=== PATIENT | female | born 1945 | race Caucasian/White ===

== ENCOUNTER 2019-06-22 10:33 | Outpatient (CLI) | payer MEDICARE, SELFPAY ==
[2019-06-22 10:48] LABS: Basophils Percent Auto 0.6 % (0.2-1.2); Eosinophils Absolute Auto 0.1 K/mm3 (0-0.3); Eosinophils Percent Auto 1.9 % (0-4.4); Hemoglobin 14.7 g/dL (12.0-15.0); Immature Granulocyte Absolute 0.01 K/mm3 (0.00-0.031); Immature Granulocyte Percent A 0.2 % (0-0.5); Lymphocytes Absolute Auto 1.37 K/mm3 (0.9-3.2); Mean Corpuscular HGB Conc 32.7 g/dl (32-36); Mean Corpuscular Volume 97.8 fl (80-100); Mean Platelet Volume 9.6 fl (7.4-10.4); Monocytes Absolute Auto 0.4 K/mm3 (0.1-0.6); Monocytes Percent Auto 7.1 % (2.6-8.5); Neutrophils Absolute Auto 4.2 K/mm3 (1.3-6.7); Neutrophils Percent Auto 68.2 % (45.5-73.1); Platelet Count Result 233 k/mm3 (150-375); Red Cell Distribution Width 12.8 % (11.5-14.5); White Blood Count 6.2 K/mm3 (4.5-10.0)
[2019-06-22 12:32] LABS: Alanine Aminotransferase 25 U/L (4-35); Albumin Level 3.8 g/dL (3.5-5.1); Alkaline Phosphatase 68 U/L (38-126); Aspartate Amino Transferase 26 U/L (14-36); Bilirubin,Total 0.4 mg/dL (0.2-1.3); Blood Urea Nitrogen 12 mg/dL (7-17); Calcium 8.8 mg/dL (8.4-10.2); Carbon Dioxide 23 mmol/L (22-30); Chloride 104 mmol/L (98-107); Estimated Glomerular Filt Rate > 60; Glucose 102 mg/dL (65-105); Potassium 4.5 mmol/L (3.4-5.0); Sodium 140 mmol/L (137-145)
[2019-06-25 06:44] LABS: CA 27.29 23 U/mL (<38)
== END 2019-06-22 10:34 | disposition home or self-care (01) ==
LOC: ANHLAB 10:35
PROVIDERS: PCP Internal Medicine; Visit Provider Internal Medicine Hematology & Oncology
DX: C50.212 Malignant neoplasm of upper-inner quadrant of left female breast (principal); Z17.0 Estrogen receptor positive status [ER+]
CPT/HCPCS: 36415; 80053; 85025; 86300

== ENCOUNTER 2019-10-14 10:54 | Outpatient (CLI) | payer MEDICARE, SELFPAY ==
[2019-10-14 11:13] LABS: Basophils Percent Auto 0.6 % (0.2-1.2); Eosinophils Absolute Auto 0.2 K/mm3 (0-0.3); Eosinophils Percent Auto 2.7 % (0-4.4); Hematocrit 44.1 % (37.0-47.0); Hemoglobin 14.4 g/dL (12.0-15.0); Immature Granulocyte Absolute 0.02 K/mm3 (0.00-0.031); Immature Granulocyte Percent A 0.3 % (0-0.5); Lymphocytes Absolute Auto 1.69 K/mm3 (0.9-3.2); Lymphocytes Percent Auto 25.3 % (18.3-44.2); Mean Corpuscular HGB Conc 32.7 g/dl (32-36); Mean Corpuscular Hemoglobin 31.8 pg (26-34); Mean Corpuscular Volume 97.4 fl (80-100); Mean Platelet Volume 9.6 fl (7.4-10.4); Monocytes Absolute Auto 0.6 K/mm3 (0.1-0.6); Monocytes Percent Auto 8.5 % (2.6-8.5); Neutrophils Absolute Auto 4.2 K/mm3 (1.3-6.7); Neutrophils Percent Auto 62.6 % (45.5-73.1); Platelet Count Result 242 k/mm3 (150-375); Red Blood Count 4.53 M/mm3 (4.2-5.4); Red Cell Distribution Width 12.7 % (11.5-14.5); White Blood Count 6.7 K/mm3 (4.5-10.0)
[2019-10-14 12:58] LABS: Alanine Aminotransferase 25 U/L (4-35); Albumin Level 3.9 g/dL (3.5-5.1); Alkaline Phosphatase 65 U/L (38-126); Aspartate Amino Transferase 29 U/L (14-36); Bilirubin,Total 0.3 mg/dL (0.2-1.3); Blood Urea Nitrogen 12 mg/dL (7-17); Calcium 8.9 mg/dL (8.4-10.2); Carbon Dioxide 27 mmol/L (22-30); Chloride 109 mmol/L (98-107); Estimated Glomerular Filt Rate > 60; Glucose 114 mg/dL (65-105); Potassium 4.1 mmol/L (3.4-5.0); Sodium 138 mmol/L (137-145)
[2019-10-17 04:50] LABS: CA 27.29 27 U/mL (<38)
== END 2019-10-14 10:55 | disposition home or self-care (01) ==
PROVIDERS: PCP Internal Medicine; Visit Provider Internal Medicine Hematology & Oncology
DX: C50.212 Malignant neoplasm of upper-inner quadrant of left female breast (principal)
CPT/HCPCS: 36415; 80053; 85025; 86300

== ENCOUNTER 2020-03-07 09:42 | Outpatient (CLI) | payer MEDICARE, SELFPAY ==
--- NOTE | ~2020-03-07 | MM_ITS ---
EXAMINATION: MM screening [facility] BI w marko HISTORY: Screening mammogram TECHNIQUE: Craniocaudal and mediolateral oblique 3-D tomosynthesis images were obtained and synthetic 2-D images were generated. CAD analysis was submitted and interpreted. COMPARISON: 03/03/2019, 08/25/2018, 02/26/2018 BREAST PARENCHYMAL COMPOSITION: The breasts are heterogeneously dense, which may obscure small masses . FINDINGS: Stable lumpectomy changes are present in the left breast. There is no evidence of suspiciou s mass, calcification, or architectural distortion to suggest malignancy in either breast. There has been no suspicious interval change. IMPRESSION: 1. No mammographic evidence of malignancy. 2. Recommend routine screening mammography in one year. BI-RADS Category 2: Benign finding(s). Reviewed, dictated and finalized at location A. T SERVICE HOST
[2020-03-07 09:59] LABS: Basophils Percent Auto 0.6 % (0.2-1.2); Eosinophils Absolute Auto 0.2 K/mm3 (0-0.3); Eosinophils Percent Auto 2.3 % (0-4.4); Hematocrit 44.3 % (37.0-47.0); Hemoglobin 14.5 g/dL (12.0-15.0); Immature Granulocyte Absolute 0.02 K/mm3 (0.00-0.031); Immature Granulocyte Percent A 0.3 % (0-0.5); Lymphocytes Absolute Auto 1.66 K/mm3 (0.9-3.2); Mean Corpuscular HGB Conc 32.7 g/dl (32-36); Mean Corpuscular Hemoglobin 31.7 pg (26-34); Mean Corpuscular Volume 96.7 fl (80-100); Mean Platelet Volume 9.5 fl (7.4-10.4); Monocytes Absolute Auto 0.5 K/mm3 (0.1-0.6); Monocytes Percent Auto 7.7 % (2.6-8.5); Neutrophils Absolute Auto 4.3 K/mm3 (1.3-6.7); Neutrophils Percent Auto 64.1 % (45.5-73.1); Platelet Count Result 253 k/mm3 (150-375); Red Blood Count 4.58 M/mm3 (4.2-5.4); Red Cell Distribution Width 12.7 % (11.5-14.5); White Blood Count 6.6 K/mm3 (4.5-10.0)
[2020-03-07 12:07] LABS: Alanine Aminotransferase 29 U/L (4-35); Alkaline Phosphatase 68 U/L (38-126); Anion Gap 9 mmol/L (8-16); Aspartate Amino Transferase 32 U/L (14-36); Bilirubin,Total 0.4 mg/dL (0.2-1.3); Blood Urea Nitrogen 13 mg/dL (7-17); Carbon Dioxide 25 mmol/L (22-30); Chloride 107 mmol/L (98-107); Estimated Glomerular Filt Rate > 60; Glucose 113 mg/dL (65-105); Potassium 4.4 mmol/L (3.4-5.0); Sodium 141 mmol/L (137-145)
[2020-03-11 12:06] LABS: CA 27.29 25 U/mL (<38)
== END 2020-03-07 09:43 | disposition home or self-care (01) ==
PROVIDERS: PCP Internal Medicine; Visit Provider Internal Medicine Hematology & Oncology
DX: Z12.31 Encounter for screening mammogram for malignant neoplasm of breast (principal); C50.212 Malignant neoplasm of upper-inner quadrant of left female breast
CPT/HCPCS: 36415; 77063; 77067; 80053; 85025; 86300

== ENCOUNTER 2020-07-21 11:08 | Outpatient (CLI) | payer MEDICARE, SELFPAY ==
[2020-07-21 11:30] LABS: Basophils Percent Auto 0.6 % (0.2-1.2); Eosinophils Absolute Auto 0.3 K/mm3 (0-0.3); Eosinophils Percent Auto 5.2 % (0-4.4); Hematocrit 45.1 % (37.0-47.0); Hemoglobin 14.8 g/dL (12.0-15.0); Immature Granulocyte Absolute 0.01 K/mm3 (0.00-0.031); Immature Granulocyte Percent A 0.2 % (0-0.5); Lymphocytes Absolute Auto 1.25 K/mm3 (0.9-3.2); Lymphocytes Percent Auto 24.9 % (18.3-44.2); Mean Corpuscular HGB Conc 32.8 g/dl (32-36); Mean Corpuscular Hemoglobin 31.2 pg (26-34); Mean Corpuscular Volume 95.1 fl (80-100); Mean Platelet Volume 9.5 fl (7.4-10.4); Monocytes Absolute Auto 0.6 K/mm3 (0.1-0.6); Monocytes Percent Auto 11.3 % (2.6-8.5); Neutrophils Absolute Auto 2.9 K/mm3 (1.3-6.7); Neutrophils Percent Auto 57.8 % (45.5-73.1); Platelet Count Result 234 k/mm3 (150-375); Red Blood Count 4.74 M/mm3 (4.2-5.4); Red Cell Distribution Width 12.6 % (11.5-14.5)
[2020-07-21 17:13] LABS: Alanine Aminotransferase 29 U/L (4-35); Alkaline Phosphatase 66 U/L (38-126); Anion Gap 8 mmol/L (8-16); Aspartate Amino Transferase 35 U/L (14-36); Bilirubin,Total 0.3 mg/dL (0.2-1.3); Blood Urea Nitrogen 12 mg/dL (7-17); Calcium 8.9 mg/dL (8.4-10.2); Carbon Dioxide 27 mmol/L (22-30); Chloride 106 mmol/L (98-107); Estimated Glomerular Filt Rate > 60; Glucose 114 mg/dL (65-105); Potassium 4.1 mmol/L (3.4-5.0); Sodium 141 mmol/L (137-145)
[2020-07-31 09:21] LABS: CA 15-3 17 U/mL (<32)
== END 2020-07-21 11:09 | disposition home or self-care (01) ==
LOC: ANHLAB 11:11
PROVIDERS: PCP Internal Medicine; Visit Provider Internal Medicine Hematology & Oncology
DX: C50.212 Malignant neoplasm of upper-inner quadrant of left female breast (principal)
CPT/HCPCS: 36415; 80053; 85025; 86300

== ENCOUNTER 2020-11-21 10:41 | Outpatient (CLI) | payer MEDICARE, SELFPAY ==
[2020-11-21 11:03] LABS: Basophils Percent Auto 0.7 % (0.2-1.2); Eosinophils Absolute Auto 0.2 K/mm3 (0-0.3); Eosinophils Percent Auto 2.4 % (0-4.4); Hematocrit 44.8 % (37.0-47.0); Hemoglobin 14.6 g/dL (12.0-15.0); Immature Granulocyte Absolute 0.01 K/mm3 (0.00-0.031); Immature Granulocyte Percent A 0.2 % (0-0.5); Lymphocytes Absolute Auto 1.62 K/mm3 (0.9-3.2); Lymphocytes Percent Auto 26.4 % (18.3-44.2); Mean Corpuscular HGB Conc 32.6 g/dl (32-36); Mean Corpuscular Hemoglobin 31.4 pg (26-34); Mean Corpuscular Volume 96.3 fl (80-100); Mean Platelet Volume 9.4 fl (7.4-10.4); Monocytes Absolute Auto 0.5 K/mm3 (0.1-0.6); Neutrophils Absolute Auto 3.8 K/mm3 (1.3-6.7); Neutrophils Percent Auto 62.3 % (45.5-73.1); Platelet Count Result 261 k/mm3 (150-375); Red Blood Count 4.65 M/mm3 (4.2-5.4); Red Cell Distribution Width 12.9 % (11.5-14.5); White Blood Count 6.1 K/mm3 (4.5-10.0)
[2020-11-21 22:02] LABS: Alanine Aminotransferase 32 U/L (4-35); Albumin Level 3.9 g/dL (3.5-5.1); Alkaline Phosphatase 60 U/L (38-126); Anion Gap 10 mmol/L (8-16); Aspartate Amino Transferase 34 U/L (14-36); Bilirubin,Total 0.5 mg/dL (0.2-1.3); Blood Urea Nitrogen 14 mg/dL (7-17); Calcium 9.6 mg/dL (8.4-10.2); Carbon Dioxide 25 mmol/L (22-30); Chloride 102 mmol/L (98-107); Estimated Glomerular Filt Rate > 60; Glucose 133 mg/dL (65-110); Potassium 4.2 mmol/L (3.4-5.0); Sodium 137 mmol/L (137-145)
[2020-11-24 06:59] LABS: CA 15-3 18 U/mL (<32)
== END 2020-11-21 10:42 | disposition home or self-care (01) ==
PROVIDERS: PCP Internal Medicine; Visit Provider Internal Medicine Hematology & Oncology
DX: C50.212 Malignant neoplasm of upper-inner quadrant of left female breast (principal)
CPT/HCPCS: 36415; 80053; 85025; 86300

== ENCOUNTER 2021-04-17 14:56 | Outpatient (CLI) | payer MEDICARE, SELFPAY ==
--- NOTE | ~2021-04-17 | MM_ITS ---
EXAMINATION: MM screening [facility] BI w marko HISTORY: Screening TECHNIQUE: Craniocaudal and mediolateral oblique 3-D tomosynthesis images were obtained and synthetic 2-D images were generated. CAD analysis was submitted and interpreted. COMPARISON: Comparison to multiple prior studies sequentially, with oldest reviewed study dated 10/2017. BREAST PARENCHYMAL COMPOSITION: The breasts are heterogenously dense, which may obscure small masses. FINDINGS: There is no evidence of suspicious mass, calcification, or architectural distortion to sugg est malignancy in either breast. There has been no suspicious interval change. IMPRESSION: 1. No mammographic evidence of malignancy. 2. Recommend routine screening mammography in one year. BI-RADS Category 1: Negative Reviewed, dictated and finalized at location A. WIRE ALINER
== END 2021-04-17 14:57 | disposition home or self-care (01) ==
LOC: ANHIMG 14:57
PROVIDERS: PCP Internal Medicine; Visit Provider Internal Medicine Hematology & Oncology
DX: Z12.31 Encounter for screening mammogram for malignant neoplasm of breast (principal)
CPT/HCPCS: 77063; 77067

== ENCOUNTER 2021-05-22 12:57 | Outpatient (CLI) | payer MEDICARE, SELFPAY ==
[2021-05-22 13:16] LABS: Basophils Absolute Auto 0.1 K/mm3 (0.0-0.1); Basophils Percent Auto 0.9 % (0.2-1.2); Eosinophils Absolute Auto 0.2 K/mm3 (0-0.3); Eosinophils Percent Auto 2.3 % (0-4.4); Hematocrit 44.9 % (37.0-47.0); Hemoglobin 14.4 g/dL (12.0-15.0); Immature Granulocyte Absolute 0.01 K/mm3 (0.00-0.031); Immature Granulocyte Percent A 0.1 % (0-0.5); Lymphocytes Absolute Auto 1.93 K/mm3 (0.9-3.2); Lymphocytes Percent Auto 27.8 % (18.3-44.2); Mean Corpuscular HGB Conc 32.1 g/dl (32-36); Mean Corpuscular Hemoglobin 31.8 pg (26-34); Mean Corpuscular Volume 99.1 fl (80-100); Mean Platelet Volume 9.7 fl (7.4-10.4); Monocytes Absolute Auto 0.5 K/mm3 (0.1-0.6); Monocytes Percent Auto 7.3 % (2.6-8.5); Neutrophils Absolute Auto 4.3 K/mm3 (1.3-6.7); Neutrophils Percent Auto 61.6 % (45.5-73.1); Platelet Count Result 258 k/mm3 (150-375); Red Blood Count 4.53 M/mm3 (4.2-5.4); Red Cell Distribution Width 12.7 % (11.5-14.5); White Blood Count 6.9 K/mm3 (4.5-10.0)
[2021-05-22 16:00] LABS: Alanine Aminotransferase 35 U/L (4-35); Albumin Level 3.8 g/dL (3.5-5.1); Alkaline Phosphatase 63 U/L (38-126); Anion Gap 3 mmol/L (8-16); Aspartate Amino Transferase 44 U/L (14-36); Bilirubin,Total 0.2 mg/dL (0.2-1.3); Blood Urea Nitrogen 11 mg/dL (7-17); Calcium 8.7 mg/dL (8.4-10.2); Carbon Dioxide 26 mmol/L (22-30); Chloride 108 mmol/L (98-107); Estimated Glomerular Filt Rate > 60; Glucose 123 mg/dL (65-110); Potassium 4.3 mmol/L (3.4-5.0); Sodium 137 mmol/L (137-145)
[2021-05-25 06:43] LABS: CA 15-3 16 U/mL (<32)
== END 2021-05-22 12:58 | disposition home or self-care (01) ==
LOC: ANHLAB 12:59
PROVIDERS: PCP Internal Medicine; Visit Provider Internal Medicine Hematology & Oncology
DX: C50.212 Malignant neoplasm of upper-inner quadrant of left female breast (principal)
CPT/HCPCS: 36415; 80053; 85025; 86300

== ENCOUNTER 2021-11-20 10:13 | Outpatient (CLI) | payer MEDICARE, SELFPAY ==
[2021-11-20 10:36] LABS: Basophils Absolute Auto 0.1 K/mm3 (0.0-0.1); Basophils Percent Auto 0.8 % (0.2-1.2); Eosinophils Absolute Auto 0.2 K/mm3 (0-0.3); Eosinophils Percent Auto 3.7 % (0-4.4); Hematocrit 44.6 % (37.0-47.0); Hemoglobin 14.8 g/dL (12.0-15.0); Immature Granulocyte Absolute 0.01 K/mm3 (0.00-0.031); Immature Granulocyte Percent A 0.2 % (0-0.5); Lymphocytes Absolute Auto 1.74 K/mm3 (0.9-3.2); Mean Corpuscular HGB Conc 33.2 g/dl (32-36); Mean Corpuscular Hemoglobin 32.1 pg (26-34); Mean Corpuscular Volume 96.7 fl (80-100); Mean Platelet Volume 9.6 fl (7.4-10.4); Monocytes Absolute Auto 0.4 K/mm3 (0.1-0.6); Monocytes Percent Auto 7.2 % (2.6-8.5); Neutrophils Absolute Auto 3.6 K/mm3 (1.3-6.7); Neutrophils Percent Auto 59.1 % (45.5-73.1); Platelet Count Result 252 k/mm3 (150-375); Red Blood Count 4.61 M/mm3 (4.2-5.4); Red Cell Distribution Width 12.8 % (11.5-14.5)
[2021-11-20 17:37] LABS: Alanine Aminotransferase 53 U/L (6-35); Albumin Level 4.2 g/dL (3.5-5.1); Alkaline Phosphatase 63 U/L (38-126); Anion Gap 13 mmol/L (8-16); Aspartate Amino Transferase 53 U/L (14-36); Bilirubin,Total 0.5 mg/dL (0.2-1.3); Blood Urea Nitrogen 13 mg/dL (7-17); Carbon Dioxide 22 mmol/L (22-30); Chloride 106 mmol/L (98-107); Estimated Glomerular Filt Rate > 60; Glucose 140 mg/dL (65-110); Potassium 4.4 mmol/L (3.4-5.0); Sodium 141 mmol/L (137-145)
[2021-11-23 06:22] LABS: CA 15-3 17 U/mL (<32)
== END 2021-11-20 10:14 | disposition home or self-care (01) ==
LOC: ANHLAB 10:15
PROVIDERS: PCP Internal Medicine; Visit Provider Internal Medicine Hematology & Oncology
DX: C50.212 Malignant neoplasm of upper-inner quadrant of left female breast (principal)
CPT/HCPCS: 36415; 80053; 85025; 86300

== ENCOUNTER 2022-04-19 10:24 | Outpatient (CLI) | payer MEDICARE, SELFPAY ==
--- NOTE | ~2022-04-19 | MM_ITS ---
EXAMINATION: MM screening [facility] BI w marko HISTORY: Screening mammogram TECHNIQUE: Craniocaudal and mediolateral oblique 3-D tomosynthesis images were obtained and synthetic 2-D images were generated. CAD analysis was submitted and interpreted. COMPARISON: 04/17/2021, 03/07/2020, 03/03/2019 bilateral screening mammogram examinations BREAST PARENCHYMAL COMPOSITION: The breasts are heterogeneously dense, which may obscure small masses . FINDINGS: Stable postoperative surgical change of the left breast is again noted. History of bilatera l partial mastectomy for bilateral breast cancer. There is no evidence of suspicious mass, calcificat ion, or new architectural distortion to suggest malignancy in either breast. There has been no suspic ious interval change. IMPRESSION: 1. Status post bilateral partial mastectomy for bilateral breast cancer. No mammographic evidence of malignancy. 2. Recommend routine screening mammography in one year. BI-RADS Category 2: Benign finding(s). Reviewed, dictated and finalized at location A. RETE MIXER OPERATOR IMPRESSION: 1. Status post bilateral partial mastectomy for bilateral breast cancer. No [facility] mographic evidence of malignancy. 2. Recommend routine screening mammography in one year. BI-RADS Category 2: Benign finding(s).
== END 2022-04-19 10:25 | disposition home or self-care (01) ==
PROVIDERS: PCP Internal Medicine; Visit Provider Internal Medicine Hematology & Oncology
DX: Z12.31 Encounter for screening mammogram for malignant neoplasm of breast (principal)
CPT/HCPCS: 77063; 77067

== ENCOUNTER 2022-05-24 11:37 | Outpatient (CLI) | payer MEDICARE, SELFPAY ==
[2022-05-24 11:54] LABS: Basophils Absolute Auto 0.1 K/mm3 (0.0-0.1); Basophils Percent Auto 0.7 % (0.2-1.2); Eosinophils Absolute Auto 0.1 K/mm3 (0-0.3); Eosinophils Percent Auto 1.9 % (0-4.4); Hemoglobin 14.5 g/dL (12.0-15.0); Immature Granulocyte Absolute 0.02 K/mm3 (0.00-0.031); Immature Granulocyte Percent A 0.3 % (0-0.5); Lymphocytes Absolute Auto 1.74 K/mm3 (0.9-3.2); Lymphocytes Percent Auto 23.5 % (18.3-44.2); Mean Corpuscular Hemoglobin 32.1 pg (26-34); Mean Corpuscular Volume 97.3 fl (80-100); Mean Platelet Volume 9.7 fl (7.4-10.4); Monocytes Absolute Auto 0.6 K/mm3 (0.1-0.6); Neutrophils Absolute Auto 4.9 K/mm3 (1.3-6.7); Neutrophils Percent Auto 65.6 % (45.5-73.1); Platelet Count Result 258 k/mm3 (150-375); Red Blood Count 4.52 M/mm3 (4.2-5.4); Red Cell Distribution Width 12.6 % (11.5-14.5); White Blood Count 7.4 K/mm3 (4.5-10.0)
[2022-05-24 15:08] LABS: Alanine Aminotransferase 47 U/L (6-35); Albumin Level 3.9 g/dL (3.5-5.1); Alkaline Phosphatase 59 U/L (38-126); Anion Gap 5 mmol/L (8-16); Aspartate Amino Transferase 51 U/L (14-36); Bilirubin,Total 0.5 mg/dL (0.2-1.3); Blood Urea Nitrogen 11 mg/dL (7-17); Calcium 8.7 mg/dL (8.4-10.2); Carbon Dioxide 27 mmol/L (22-30); Chloride 105 mmol/L (98-107); Estimated Glomerular Filt Rate > 60; Glucose 110 mg/dL (65-110); Potassium 4.2 mmol/L (3.4-5.0); Sodium 137 mmol/L (137-145)
[2022-05-29 14:20] LABS: CA 15-3 19 U/mL (<32)
== END 2022-05-24 11:38 | disposition home or self-care (01) ==
LOC: ANHLAB 11:38
PROVIDERS: PCP Internal Medicine; Visit Provider Internal Medicine Hematology & Oncology
DX: C50.212 Malignant neoplasm of upper-inner quadrant of left female breast (principal)
CPT/HCPCS: 36415; 80053; 85025; 86300

== ENCOUNTER 2022-06-18 07:00 | Outpatient (NON) | payer MEDICARE, SELFPAY | END 2022-06-18 07:01 | disposition home or self-care (01) | LOC: ANHLAB 06-20 11:10 | PROVIDERS: PCP Internal Medicine; Visit Provider Nurse Practitioner | DX: C44.311 Basal cell carcinoma of skin of nose (principal) | CPT/HCPCS: 88305 ==

== ENCOUNTER 2022-07-02 14:41 | Outpatient (NON) | payer MEDICARE, SELFPAY | END 2022-07-02 14:42 | disposition home or self-care (01) | LOC: ANHLAB 14:41 | PROVIDERS: PCP Internal Medicine; Visit Provider Nurse Practitioner | DX: C44.311 Basal cell carcinoma of skin of nose (principal) | CPT/HCPCS: 88305; 88331 ==

== ENCOUNTER 2022-11-21 10:15 | Outpatient (CLI) | payer MEDICARE, SELFPAY ==
[2022-11-21 10:37] LABS: Basophils Absolute Auto 0.1 K/mm3 (0.0-0.1); Eosinophils Absolute Auto 0.2 K/mm3 (0-0.3); Eosinophils Percent Auto 2.6 % (0-4.4); Hematocrit 43.6 % (37.0-47.0); Hemoglobin 14.4 g/dL (12.0-15.0); Immature Granulocyte Absolute 0.02 K/mm3 (0.00-0.031); Immature Granulocyte Percent A 0.3 % (0-0.5); Lymphocytes Absolute Auto 1.54 K/mm3 (0.9-3.2); Lymphocytes Percent Auto 24.7 % (18.3-44.2); Mean Corpuscular Hemoglobin 31.7 pg (26-34); Mean Platelet Volume 9.5 fl (7.4-10.4); Monocytes Absolute Auto 0.5 K/mm3 (0.1-0.6); Monocytes Percent Auto 7.4 % (2.6-8.5); Platelet Count Result 256 k/mm3 (150-375); Red Blood Count 4.54 M/mm3 (4.2-5.4); Red Cell Distribution Width 12.6 % (11.5-14.5); White Blood Count 6.2 K/mm3 (4.5-10.0)
[2022-11-21 15:41] LABS: Alanine Aminotransferase 48 U/L (6-35); Albumin Level 3.8 g/dL (3.5-5.1); Alkaline Phosphatase 50 U/L (38-126); Anion Gap 7 mmol/L (8-16); Aspartate Amino Transferase 63 U/L (14-36); Bilirubin,Total 0.5 mg/dL (0.2-1.3); Blood Urea Nitrogen 12 mg/dL (7-17); Carbon Dioxide 23 mmol/L (22-30); Chloride 106 mmol/L (98-107); Estimated Glomerular Filt Rate > 60; Glucose 113 mg/dL (65-110); Potassium 4.1 mmol/L (3.4-5.0); Sodium 136 mmol/L (137-145)
[2022-11-26 15:17] LABS: CA 15-3 17 U/mL (<32)
== END 2022-11-21 10:16 | disposition home or self-care (01) ==
LOC: ANHLAB 10:18
PROVIDERS: PCP Internal Medicine; Visit Provider Internal Medicine Hematology & Oncology
DX: C50.212 Malignant neoplasm of upper-inner quadrant of left female breast (principal)
CPT/HCPCS: 36415; 80053; 85025; 86300

== ENCOUNTER 2023-04-27 10:49 | Outpatient (CLI) | payer MEDICARE, SELFPAY ==
--- NOTE | ~2023-04-27 | MM_ITS ---
EXAMINATION: MM screening [facility] BI w marko HISTORY: Screening mammogram, history of bilateral breast cancer TECHNIQUE: Craniocaudal and mediolateral oblique 3-D tomosynthesis images were obtained and synthetic 2-D images were generated. CAD analysis was submitted and interpreted. COMPARISON: 04/19/2022, 04/17/2021, 03/07/2020 BREAST PARENCHYMAL COMPOSITION: The breasts are heterogeneously dense, which may obscure small masses . FINDINGS: There are stable lumpectomy changes in the breasts. No suspicious mass, calcification, or a rchitectural distortion are identified in either breast to suggest malignancy. There has been no susp icious interval change. IMPRESSION: 1. No mammographic evidence of malignancy. 2. Recommend routine screening mammography in one year. BI-RADS Category 2: Benign finding(s). Reviewed, dictated and finalized at location A. RWEAR WELTER
--- NOTE | ~2023-04-27 | DEXA_ITS ---
Bone Density Report Name: MARIO MOYA Age: 78 Sex: Female Ethnicity: White Date of : 1945 Indication: postmenopausal; screening for osteoporosis; inflammatory bowel disease; cancer; Referring Provider: KIANNA QUINTERO Study: Bone densitometry was performed. Exam Date: April 27, 2023 Accession number: [id number] Bone Density: Region BMD T-score Z-score Classification AP Spine(L1-L4) 1.101 0.5 2.9 Normal Femoral Neck (Left) 0.828 -0.2 1.9 Normal Total Hip (Left) 1.005 0.5 2.3 Normal Femoral Neck (Right) 0.906 0.5 2.6 Normal Total Hip (Right) 1.061 1.0 2.8 Normal Total Hip Mean 1.033 0.8 2.6 Normal World Health Organization criteria for BMD impression classify patients as: Normal (T-score at or above -1.0), Osteopenia (T-score between -1.0 and -2.5), or Osteoporosis (T-score at or below -2.5). 10-year Fracture Risk: FRAX not reported because: All T-scores for Spine Total, Hip Total, Femoral Neck at or above -1.0 Treated for osteoporosis Clinical Information Provided by Patient: Is being treated for osteoporosis Has used the following medications: Vitamin D Has the following medical conditions: Cancer, Inflammatory bowel diseases Patient maximum height was 61.75 Menopause Age: 55 No regular weight bearing exercise Does not regularly consume dairy products Drinks caffeinated beverages Onset of menses at age 13 Number of children 2 Impression: The patient has normal bone mass. Discussion: It is important to ask patients whether they are taking their medications and to encourage continued and appropriate compliance with their osteoporosis therapies to reduce fracture risk. It is also important to review their risk factors and encourage appropriate calcium and vitamin D intakes, exercise, fall prevention and other lifestyle measures. Follow-Up: Consider a repeat BMD and Vertebral Fracture Assessment (VFA) exam in 2 years or sooner if medically necessary, to reassess this patient's status. Reported by: [facility] on 04/27/2023 11:21:00 AM. Reviewed, dictated and finalized at location ALuis Alberto ZAYAS
== END 2023-04-27 10:50 | disposition home or self-care (01) ==
PROVIDERS: PCP Internal Medicine; Visit Provider Internal Medicine Hematology & Oncology
DX: Z12.31 Encounter for screening mammogram for malignant neoplasm of breast (principal); M85.89 Other specified disorders of bone density and structure, multiple sites
CPT/HCPCS: 77063; 77067; 77080

== ENCOUNTER 2023-05-27 10:30 | Outpatient (CLI) | payer MEDICARE, SELFPAY ==
[2023-05-27 10:49] LABS: Basophils Percent Auto 0.6 % (0.2-1.2); Eosinophils Absolute Auto 0.2 K/mm3 (0-0.3); Eosinophils Percent Auto 2.5 % (0-4.4); Hematocrit 45.1 % (37.0-47.0); Hemoglobin 15.1 g/dL (12.0-15.0); Immature Granulocyte Absolute 0.01 K/mm3 (0.00-0.031); Immature Granulocyte Percent A 0.1 % (0-0.5); Lymphocytes Absolute Auto 2.06 K/mm3 (0.9-3.2); Lymphocytes Percent Auto 29.2 % (18.3-44.2); Mean Corpuscular HGB Conc 33.5 g/dl (32-36); Mean Corpuscular Hemoglobin 32.3 pg (26-34); Mean Corpuscular Volume 96.6 fl (80-100); Mean Platelet Volume 9.4 fl (7.4-10.4); Monocytes Absolute Auto 0.5 K/mm3 (0.1-0.6); Monocytes Percent Auto 6.4 % (2.6-8.5); Neutrophils Absolute Auto 4.3 K/mm3 (1.3-6.7); Neutrophils Percent Auto 61.2 % (45.5-73.1); Platelet Count Result 262 k/mm3 (150-375); Red Blood Count 4.67 M/mm3 (4.2-5.4); Red Cell Distribution Width 12.5 % (11.5-14.5); White Blood Count 7.1 K/mm3 (4.5-10.0)
[2023-05-27 16:36] LABS: Alanine Aminotransferase 47 U/L (6-35); Alkaline Phosphatase 63 U/L (38-126); Anion Gap 7 mmol/L (8-16); Aspartate Amino Transferase 45 U/L (14-36); Bilirubin,Total 0.6 mg/dL (0.2-1.3); Blood Urea Nitrogen 14 mg/dL (7-17); Calcium 9.3 mg/dL (8.4-10.2); Carbon Dioxide 29 mmol/L (22-30); Chloride 103 mmol/L (98-107); Estimated Glomerular Filt Rate > 60; Glucose 153 mg/dL (65-110); Potassium 4.2 mmol/L (3.4-5.0); Sodium 139 mmol/L (137-145)
[2023-05-30 06:32] LABS: CA 15-3 20 U/mL (<32)
== END 2023-05-27 10:31 | disposition home or self-care (01) ==
PROVIDERS: PCP Internal Medicine; Visit Provider Internal Medicine Hematology & Oncology
DX: C50.212 Malignant neoplasm of upper-inner quadrant of left female breast (principal)
CPT/HCPCS: 36415; 80053; 85025; 86300

== ENCOUNTER 2023-11-27 11:14 | Outpatient (CLI) | payer MEDICARE, SELFPAY ==
[2023-11-27 11:34] LABS: Basophils Absolute Auto 0.1 K/mm3 (0.0-0.1); Basophils Percent Auto 0.7 % (0.2-1.2); Eosinophils Absolute Auto 0.2 K/mm3 (0-0.3); Hematocrit 45.5 % (37.0-47.0); Hemoglobin 15.4 g/dL (12.0-15.0); Immature Granulocyte Absolute 0.03 K/mm3 (0.00-0.031); Immature Granulocyte Percent A 0.3 % (0-0.5); Lymphocytes Absolute Auto 1.95 K/mm3 (0.9-3.2); Lymphocytes Percent Auto 21.5 % (18.3-44.2); Mean Corpuscular HGB Conc 33.8 g/dl (32-36); Mean Corpuscular Hemoglobin 32.6 pg (26-34); Mean Corpuscular Volume 96.4 fl (80-100); Mean Platelet Volume 9.8 fl (7.4-10.4); Monocytes Absolute Auto 0.5 K/mm3 (0.1-0.6); Monocytes Percent Auto 5.6 % (2.6-8.5); Neutrophils Absolute Auto 6.4 K/mm3 (1.3-6.7); Neutrophils Percent Auto 69.9 % (45.5-73.1); Platelet Count Result 213 k/mm3 (150-375); Red Blood Count 4.72 M/mm3 (4.2-5.4); Red Cell Distribution Width 12.4 % (11.5-14.5); White Blood Count 9.1 K/mm3 (4.5-10.0)
[2023-11-27 12:40] LABS: Alanine Aminotransferase 36 U/L (6-35); Albumin Level 4.4 g/dL (3.5-5.1); Alkaline Phosphatase 61 U/L (38-126); Anion Gap 10 mmol/L (4-12); Aspartate Amino Transferase 34 U/L (14-36); Blood Urea Nitrogen 13 mg/dL (7-17); Calcium 9.3 mg/dL (8.4-10.2); Carbon Dioxide 28 mmol/L (22-30); Chloride 101 mmol/L (98-107); Estimated Glomerular Filt Rate > 60; Glucose 120 mg/dL (65-110); Potassium 4.2 mmol/L (3.4-5.0); Sodium 139 mmol/L (137-145)
[2023-11-28 13:38] LABS: CA 15-3 15 U/mL (<32)
== END 2023-11-27 11:15 | disposition home or self-care (01) ==
LOC: ANHLAB 11:17
PROVIDERS: PCP Internal Medicine; Visit Provider Internal Medicine Hematology & Oncology
DX: C50.212 Malignant neoplasm of upper-inner quadrant of left female breast (principal)
CPT/HCPCS: 36415; 80053; 85025; 86300

== ENCOUNTER 2024-04-29 09:41 | Outpatient (CLI) | payer MEDICARE, SELFPAY ==
--- NOTE | ~2024-04-29 | MM_ITS ---
EXAMINATION: MM screening [facility] BI w marko HISTORY: Screening TECHNIQUE: Craniocaudal and mediolateral oblique 3-D tomosynthesis images were obtained and synthetic 2-D images were generated. CAD analysis was submitted and interpreted. COMPARISON: Comparison to multiple prior studies sequentially, with oldest reviewed study dated 09/2018. BREAST PARENCHYMAL COMPOSITION: There are scattered areas of fibroglandular density. FINDINGS: There is no evidence of suspicious mass, calcification, or architectural distortion to sugg est malignancy in either breast. There has been no suspicious interval change. IMPRESSION: 1. No mammographic evidence of malignancy. 2. Recommend routine screening mammography in one year. BI-RADS Category 1: Negative Reviewed, dictated and finalized at location B. ETING AND OUTREACH COORDINATOR
== END 2024-04-29 09:42 | disposition home or self-care (01) ==
LOC: ANHIMG 09:44
PROVIDERS: PCP Nurse Practitioner Family; Visit Provider Internal Medicine Hematology & Oncology
DX: Z12.31 Encounter for screening mammogram for malignant neoplasm of breast (principal)
CPT/HCPCS: 77063; 77067

== ENCOUNTER 2024-05-18 10:04 | Outpatient (CLI) | payer MEDICARE, SELFPAY ==
[2024-05-18 10:18] LABS: Basophils Percent Auto 0.4 % (0.2-1.2); Eosinophils Absolute Auto 0.2 K/mm3 (0-0.3); Hematocrit 47.8 % (37.0-47.0); Hemoglobin 15.8 g/dL (12.0-15.0); Immature Granulocyte Absolute 0.02 K/mm3 (0.00-0.031); Immature Granulocyte Percent A 0.3 % (0-0.5); Lymphocytes Absolute Auto 1.57 K/mm3 (0.9-3.2); Mean Corpuscular HGB Conc 33.1 g/dl (32-36); Mean Corpuscular Hemoglobin 32.1 pg (26-34); Mean Corpuscular Volume 97.2 fl (80-100); Mean Platelet Volume 9.3 fl (7.4-10.4); Monocytes Absolute Auto 0.6 K/mm3 (0.1-0.6); Monocytes Percent Auto 7.4 % (2.6-8.5); Neutrophils Absolute Auto 5.2 K/mm3 (1.3-6.7); Neutrophils Percent Auto 68.9 % (45.5-73.1); Platelet Count Result 261 k/mm3 (150-375); Red Blood Count 4.92 M/mm3 (4.2-5.4); Red Cell Distribution Width 12.2 % (11.5-14.5); White Blood Count 7.5 K/mm3 (4.5-10.0)
--- OUTSIDE RECORDS SUMMARY | 2024-05-18 10:56 | XMS_ITS | Referral Summary ---
Author Organization [facility] Address [address] [place] [address] Care Team Providers Care Actuarial Trainee Name Role Phone Kenny Fields MD Primary Care Provider [phone] Source Comments [facility],non-owned Affiliates and Associated Physician Practices is amultiple site organization consisting of ambulatory clinics and hospital sitesin [place], [place], [place] and [place]. This disclosure is being madepursuant to the Care Everywhere program and may not contain all information available regarding this patient. Last updated 18.[facility] Allergies Active Allergy Reactions Criticality Noted Date Comments Aspirin Swelling Low 11/29/2016 Social History Tobacco Use Types Packs/Day Years Used Date Smoking Tobacco: Never Assessed Sex and Gender Information Value Date Recorded Sex Assigned at Not on file Gender Identity Not on file Sexual Orientation Not on file Plan of Treatment Not on file Care Teams Actuarial Trainee Relationship Specialty Start Date End Date Kenny Fields MD [address] [place], [place] [id number] PCP - General 07/03/22
--- OUTSIDE RECORDS SUMMARY | 2024-05-18 10:56 | XMS_ITS | Clinical Summary ---
Author Organization [facility] Address [address] [place] [address] Care Team Providers Care Dry Cleaning Attendant Name Role Phone Kenny Fields MD Primary Care Provider [phone] Source Comments [facility],non-owned Affiliates and Associated Physician Practices is amultiple site organization consisting of ambulatory clinics and hospital sitesin [place], [place], [place] and [place]. This disclosure is being madepursuant to the Care Everywhere program and may not contain all information available regarding this patient. Last updated 18.[facility] Allergies Active Allergy Reactions Criticality Noted Date Comments Aspirin Swelling Low 11/29/2016 Social History Tobacco Use Types Packs/Day Years Used Date Smoking Tobacco: Never Assessed Sex and Gender Information Value Date Recorded Sex Assigned at Not on file Gender Identity Not on file Sexual Orientation Not on file Plan of Treatment Health Maintenance Due Date Last Done Comments BONE DENSITY TESTING 1945 MEDICARE AWV ? 12 MONTHS 1945 HEPATITIS C SCREENING 04/19/1965 DTAP/TDAP/TD VACCINES (1 - Tdap) 1966 PNEUMOCOCCAL VACCINE 50+ (1 of 1 - PCV) 1997 ZOSTER VACCINE (1 of 2) 1997 Respiratory Syncytial Virus (RSV) Vaccine Pt: or over 60 yrs (1 - 1-dose 75+ series) 2022 COVID-19 VACCINE ( - 2023-2 5 season) 2023 INFLUENZA VACCINE (#1) 2023 DEPRESSION SCREENING 04/22/2024 HEPATITIS B VACCINE Aged Out No longe r eligible based on patient's age to complete this topic HIB VACCINE Aged Out No longer eligi ble based on patient's age to complete this topic HPV VACCINE Aged Out No longer eligi ble based on patient's age to complete this topic MENINGOCOCCAL (Group B) VACCINE Aged Out No longer eligible based on patient's age to complete this topic MENINGOCOCCAL VACCINE Aged Out No danica giovani eligible based on patient's age to complete this topic Care Teams Dry Cleaning Attendant Relationship Specialty Start Date End Date Kenny Fields MD [facility] [place] [address] PCP - General 07/03/22
--- OUTSIDE RECORDS SUMMARY | 2024-05-18 10:56 | XMS_ITS | Patient Health Summary ---
Author Organization [facility] Address [address] [place] [address] Care Team Providers Care Worm Packer Name Role Phone Kenny Fields MD Primary Care Provider [phone] Note from [facility],non-owned Affiliates and Associated Physician Practices is amultiple site organization consisting of ambulatory clinics and hospital sitesin [place], [place], [place] and [place]. This disclosure is being madepursuant to the Care Everywhere program and may not contain all information available regarding this patient. Last updated 18.[facility] Allergies * Aspirin(Swelling) -Low Criticality Social History Tobacco Use Types Packs/Day Years Used Date Smoking Tobacco: Never Assessed Sex and Gender Information Value Date Recorded Sex Assigned at Not on file Gender Identity Not on file Sexual Orientation Not on file Procedures * PATHOLOGY TISSUE(Performed 11/29/2016) * US BREAST BIOPSY(Performed 11/29/2016) * US BREAST BILATERAL LTD(Performed 11/29/2016) * MAMMO BILAT DIAGNOSTIC(Performed 11/29/2016) * MRI BREAST BILAT WWO CONTRAST(Performed 11/22/2016) * CREATININE BLOOD - POCT (IP) SL(Performed 11/22/2016) Results * PATHOLOGY TISSUE (11/29/2016 1:33 PM CDT) Surgical Pathology Tissue ACCESSION No: [id number] CLINICAL HISTORY: Distortion with questionable IDC. 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 IDC , are multiple fragments of soft, yellow-white fibroadipose tissue, with an aggregate measurement of 2.5 x 1.5 x 0.3 cm. The specimen is filtered and submitted entirely in cassette A1. 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 In addition, there is a ~1.5 mm focus of open tubules and cribriform structures without a desmoplastic reaction, but also without obvious myoepithelium and an infiltrative appearance, highly suspicious for invasive ductal carcinoma. A p63 immunostain was performed in an attempt to further characterize this area, though this focus is not present on the deeper immunostained slides. ??Nevertheless, the findings are worrisome for a low grade invasive carcinoma by H&E examination. Immunostains for ER, KS, and HER-2 were performed though again the focus suspicious for carcinoma is not present. On the portions of ductal carcinoma in situ, ER is positive (3+ intensity, 100% of cells), KS is positive (2+ intensity, 90% of cells), and HER-2/cyrus is not overexpressed (1+ staining, 50% cells). ??A Ki-67 immunostain shows a low proliferative rate (2+ intensity, less than 10% of cells). ??Again, these breast biomarkers are only evaluating ductal carcinoma in situ in this sampling, as the area suspicious for invasion is not present on the deeper immunostained slides. Given the worrisome features by H&E examination, re-excision/lumpectomy is recommended, with biomarkers to be performed on the larger sampling. ??This case has undergone intradepartmental review. The performance characteristics of all immunohistochemical and indirect immunofluorescence stains (if any) cited in this report were determined by the [facility].?? Some of these tests were developed by our own laboratory and have not been cleared or approved by the US Food and Drug Administration.?The FDA does not require this test to go through premarket FDA review.?These tests are used for clinical purposes. They should not be regarded as investigational or for research.?? This laboratory is certified under the Clinical Laboratory Improvement Amendments (CLIA) as qualified to perform high complexity clinical laboratory testing. This case has been personally reviewed and interpreted by the attending (teaching) pathologist. Final Diagnosis performed by Yaritza Solomon MD. Electronically signed 11/30/2016 [facility] Biopsy, Needle (Breast, Left) 11/29/2016 1:33 PM CDT 11/29/2016 2:04 PM CDT Narrative [facility] - 11/30/2016 8:07 PM CDT PROBLEM LIST: The problems are not reviewed yet. Please review them in the Problem List activity and refresh this SmartLink. PRE-OP DIAGNOSIS: ??* No pre-op diagnosis entered * OPERATIVE PROCEDURE / FINDINGS: ??* No procedures listed * POST-OP DIAGNOSIS: * No post-op diagnosis entered * Gabbi Vegas MD LAB - PATHOLOGY/CYTO LOGY ORDERABLES [facility] * US BREAST BIOPSY (11/29/2016 1:32 PM CDT) Anatomical Region Laterality Modality Other Impressions 12/05/2016 12:31 PM CDT IMPRESSION: Ultrasound-guided biopsy of a mass at the ??10 o'clock position, 6 cm from the nipple within the left breast. When the final pathology results are available, an addendum will be issued to this report assessing radiologic/pathologic concordance. This report was electronically signed by GABBI VEGAS M.D. ??on 11/29/2016 2:17 PM . ADDENDUM #1 Pathology is ductal and cribriform structures suspicious for invasive carcinoma. 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 Surgical management is recommended. Dr. Rose notified via email. Note there is a smaller area of architectural distortion in the medial posterior left breast on the CC view (CC 43). ??On MRI, it likely corresponds to a subtle area of architectural distortion in the upper inner left breast, 9 cm posterior to the nipple (series 6, image 85). ??This subtle distortion is 2cm posterior and medial to the index distortion on MRI. ??Excision to include both areas of distortion is recommended. This report was electronically signed by GABBI VEGAS M.D. ??on 12/05/2016 12:31 PM . Narrative 12/05/2016 12:31 PM CDT ORIGINAL REPORT ULTRASOUND-GUIDED CORE NEEDLE BIOPSY LEFT BREAST, DIGITAL DIAGNOSTIC MAMMOGRAM SINGLE VIEW HISTORY: This is a 71 year old woman who is referred for ultrasound-guided biopsy of architectural distortion in the 10:00 left breast, 6 cm from the nipple. COMPARISON: Diagnostic mammography and ultrasound performed earlier today. MRI 11/22/2016. PRE-PROCEDURAL CONSULTATION: Details of the procedure and possible limitations and complications were discussed with the patient. After addressing her questions and concerns, written informed consent was obtained. PROCEDURE: Preprocedure images were reviewed. ??Hospital time out procedure was performed. Informed consent was obtained and documented. The procedure and its risks benefits were discussed with the patient, including, but not limited to, bleeding, infection, allergy, and nondiagnostic specimen. The architectural distortion in the left breast at 10:00, 6 from the nipple, was reidentified. ??The overlying skin was prepped and draped in usual sterile fashion. 2 cc of 1% lidocaine was given for local anesthesia at the skin surface. Using sonographic guidance, 10 cc of 2% lidocaine with epinephrine was given for deeper anesthesia. A 5 mm incision was made in the skin with an 11 blade scalpel and a vacuum assisted biopsy device was inserted. Approximately 6 samples were obtained. ??A tophat clip was then deployed at the biopsy site. ??Firm pressure was held until bleeding stopped. The patient was then transferred to the mammographic suite and a craniocaudal and mediolateral projection of the left breast were obtained. The clip is in an appropriate position. Firm pressure was then held for 10 minutes, and the biopsy site redressed. The patient was discharged from the breast imaging center in stable condition. Blood loss was minimal. The patient tolerated the procedure well with no immediate complications. Post-procedural digital mammographic views of the left breast demonstrate the tophat clip in the upper inner breast, in the area of architectural distortion. Procedure Note Gabbi Vegas MD - 10/12/2019 ORIGINAL REPORT ULTRASOUND-GUIDED CORE NEEDLE BIOPSY LEFT BREAST, DIGITAL DIAGNOSTICMAMMOGRAM SINGLE VIEW HISTORY: This is a 71 year old woman who is referred for ultrasound-guidedbiopsy of architectural distortion in the 10:00 left breast, 6 cm from thenipple. COMPARISON: Diagnostic mammography and ultrasound performed earlier today.MRI 11/22/2016. PRE-PROCEDURAL CONSULTATION: Details of the procedure and possiblelimitations and complications were discussed with the patient. Afteraddressing her questions and concerns, written informed consent wasobtained. PROCEDURE: Preprocedure images were reviewed. Hospital time out procedurewas performed. Informed consent was obtained and documented. The procedureand its risks benefits were discussed with the patient, including, but notlimited to, bleeding, infection, allergy, and nondiagnostic specimen. The architectural distortion in the left breast at 10:00, 6 from thenipple, was reidentified. The overlying skin was prepped and draped inusual sterile fashion. 2 cc of 1% lidocaine was given for local anesthesiaat the skin surface. Using sonographic guidance, 10 cc of 2% lidocaine with epinephrine was given for deeperanesthesia. A 5 mm incision was made in the skin with an 11 blade scalpeland a vacuum assisted biopsy device was inserted. Approximately 6 sampleswere obtained. A tophat clip was then deployed at the biopsy site. Firm pressure was held until bleedingstopped. The patient was then transferred to the mammographic suite and acraniocaudal and mediolateral projection of the left breast were obtained.The clip is in an appropriate position. Firm pressure was then held for 10minutes, and the biopsy site redressed. The patient was discharged from the breast imaging center in stablecondition. Blood loss was minimal. The patient tolerated the procedure well with no immediatecomplications. Post-procedural digital mammographic views of the left breast demonstratethe tophat clip in the upper inner breast, in the area of architecturaldistortion. IMPRESSION IMPRESSION: Ultrasound-guided biopsy of a mass at the 10 o'clock position, 6 cm fromthe nipple within the left breast. When the final pathology results are available, an addendum will be issuedto this report assessing radiologic/pathologic concordance. This report was electronically signed by GABBI VEGAS M.D. on11/29/2016 2:17 PM . ADDENDUM #1 Pathology is ductal and cribriform structures suspicious for invasivecarcinoma. Ductal carcinoma in situ. The results are malignant andconcordant with the imaging assessment. Surgical management isrecommended. Dr. Rose notified via email. Note there is a smaller area of architectural distortion in the medialposterior left breast on the CC view (CC 43). On MRI, it likelycorresponds to a subtle area of architectural distortion in the upperinner left breast, 9 cm posterior to the nipple (series 6, image 85). This subtle distortion is 2cm posterior and medialto the index distortion on MRI. Excision to include both areas ofdistortion is recommended. This report was electronically signed by GABBI VEGAS M.D. on12/05/2016 12:31 PM . Historical Provider MD FERRIS ORDERABLES * US BREAST BILATERAL LTD (11/29/2016 1:31 PM CDT) Anatomical Region Laterality Modality Bilateral Other Impressions 11/29/2016 2:18 PM CDT AND RECOMMENDATION: 1. Mammographic and sonographic architectural distortion in the left breast at 10:00, 6 cm from the nipple is suspicious for malignancy. ??Ultrasound-guided core needle biopsy is recommended and will be performed later today. 2. ??Questioned left nipple retraction. 3. ??The biopsy-proven malignancy in the slightly upper outer posterior right breast corresponds to a 2.4 cm mass with biopsy clip. There is a 1.0 cm mass located 0.8 cm from the index malignancy that is suspicious for a satellite malignancy. ??Excision of this mass at the time of surgery is recommended. The findings and recommendations were discussed with the patient. BI-RADS CODE: BI-RADS Category 4c: Highly suspicious finding - biopsy should be considered. This report was electronically signed by GABBI VEGAS M.D. ??on 11/29/2016 12:55 PM . ADDENDUM #1 The purpose of this addendum is to add information to the left breast mammography section. On mammography, there is architectural distortion in the 10-11 o'clock left breast, 6 cm from the nipple (CC 34, LM 29). ??Three cm posterior and medial to the index architectural distortion, there is a smaller area of architectural distortion on the CC view (CC 43). ??On MRI, it likely corresponds to a subtle area of architectural distortion in the upper inner breast, 9 cm posterior to the nipple (series 6, image 85). ??This subtle distortion is 2cm posterior and medial to the index distortion on MRI. ?? Excision to include both areas of distortion is recommended. This report was electronically signed by GABBI VEGAS M.D. ??on 11/29/2016 2:18 PM . Narrative 11/29/2016 2:18 PM CDT ORIGINAL REPORT BILATERAL DIGITAL DIAGNOSTIC MAMMOGRAM AND LIMITED BILATERAL BREAST ULTRASOUND: TECHNIQUE: Images were performed using 2D full field digital mammography with 3D tomosynthesis images. CAD analysis was performed. CLINICAL HISTORY: 71 year-old who initially was referred to an outside facility for annual mammography as well as evaluation of a palpable right breast mass. The palpable right breast mass was biopsied with pathology of IDC. Bilateral breast MRI was performed to evaluate extent of disease and demonstrated the biopsy-proven malignancy in the right breast, borderline size right axillary lymph nodes, nonmass enhancement/architectural distortion in the left upper inner breast suspicious for malignancy, and a questionably mildly prominent left axillary lymph node. She is referred for further evaluation and possible biopsy. COMPARISON EXAM(S): ??2D and C-view images performed at outside facility on 10/30/2016. Screening mammogram 12/12/2011, 09/20/2010, 02/11/2006. BILATERAL MAMMOGRAPHIC FINDINGS: ??The breast tissue is heterogeneously dense, which could obscure detection of small masses. The biopsy-proven malignancy in the central outer posterior right breast corresponds to a 2.4 x 1.8 cm irregular mass that contains a biopsy clip. Just superior and lateral to the known malignancy, an oval mass measures 0.8 cm. Ultrasound is performed for further evaluation. The visualized right axillary lymph nodes are similar in appearance compared to 12/12/2011. There is architectural distortion in the 10-11 o'clock left breast, 6 cm from the nipple (CC 34, LM 29). Ultrasound is performed for further evaluation. Additionally, the left nipple appears to be retracted, which would represent a change compared to 2011. The visualized left axillary lymph nodes are similar in appearance compared to 12/12/2011 and 09/20/2010. LIMITED BILATERAL BREAST ULTRASOUND FINDINGS: Sonographic evaluation of the area of palpable abnormality in the right breast, both axillae, and the upper inner left breast was performed by the drapery inspector. Ultrasound of the left breast was also performed by the physician. The palpable, biopsy-proven malignancy in the right breast is at 8:00, 7 cm from the nipple. It corresponds to an irregular hypoechoic mass with antiparallel orientation that measures 2.5 x 1.9 x 1.5 cm. The biopsy clip is seen within the mass. In the right breast at 8:30, 7 cm from the nipple, an oval hypoechoic mass measures 1.0 x 0.5 x 0.7 cm. It is suspicious for a satellite malignancy. It is 0.8 cm from the index malignancy. Excision of this mass at the time of surgery is recommended. No right axillary lymphadenopathy. In the left breast at 10:00, 6 cm from the nipple, there is subtle architectural distortion with tethering of the adjacent breast tissue. It likely corresponds to the mammographic architectural distortion and is suspicious for malignancy. No left axillary lymphadenopathy. Procedure Note Gabbi Vegas MD - 07/19/2017 ORIGINAL REPORT BILATERAL DIGITAL DIAGNOSTIC MAMMOGRAM AND LIMITED BILATERAL BREASTULTRASOUND: TECHNIQUE: Images were performed using 2D full field digital mammographywith 3D tomosynthesis images. CAD analysis was performed. CLINICAL HISTORY: 71 year-old who initially was [facility] annual mammography as well as evaluation of a palpable rightbreast mass. The palpable right breast mass was biopsied with pathology [facility]. Bilateral breast MRI was performed to evaluate extent of disease and demonstrated the biopsy- provenmalignancy in the right breast, borderline size right axillary lymphnodes, nonmass enhancement/architectural distortion in the left upperinner breast suspicious for malignancy, and a questionably mildly prominent left axillary lymph node. She isreferred for further evaluation and possible biopsy. COMPARISON EXAM(S): 2D and C-view images performed at outside facility on10/30/2016. Screening mammogram 12/12/2011, 09/20/2010, 02/11/2006. BILATERAL MAMMOGRAPHIC FINDINGS: The breast tissue is heterogeneouslydense, which could obscure detection of small masses. The biopsy-proven malignancy in the central outer posterior right breastcorresponds to a 2.4 x 1.8 cm irregular mass that contains a biopsy clip.Just superior and lateral to the known malignancy, an oval mass measures0.8 cm. Ultrasound is performed for further evaluation. The visualized right axillary lymph nodes aresimilar in appearance compared to 12/12/2011. There is architectural distortion in the 10-11 o'clock left breast, 6 cmfrom the nipple (CC 34, LM 29). Ultrasound is performed for furtherevaluation. Additionally, the left nipple appears to be retracted, whichwould represent a change compared to 2011. The visualized left axillary lymph nodes are similar in appearancecompared to 12/12/2011 and 09/20/2010. LIMITED BILATERAL BREAST ULTRASOUND FINDINGS: Sonographic evaluation ofthe area of palpable abnormality in the right breast, both axillae, andthe upper inner left breast was performed by the drapery inspector. Ultrasoundof the left breast was also performed by the physician. The palpable, biopsy-proven malignancy in the right breast is at 8:00, 7cm from the nipple. It corresponds to an irregular hypoechoic mass withantiparallel orientation that measures 2.5 x 1.9 x 1.5 cm. The biopsy clipis seen within the mass. In the right breast at 8:30, 7 cm from the nipple, an oval hypoechoic massmeasures 1.0 x 0.5 x 0.7 cm. It is suspicious for a satellite malignancy.It is 0.8 cm from the index malignancy. Excision of this mass at the timeof surgery is recommended. No right axillary lymphadenopathy. In the left breast at 10:00, 6 cm from the nipple, there is subtlearchitectural distortion with tethering of the adjacent breast tissue. Itlikely corresponds to the mammographic architectural distortion and issuspicious for malignancy. No left axillary lymphadenopathy. IMPRESSION AND RECOMMENDATION: 1. Mammographic and sonographic architectural distortion in the leftbreast at 10:00, 6 cm from the nipple is suspicious for malignancy.Ultrasound-guided core needle biopsy is recommended and will be performedlater today. 2. Questioned left nipple retraction. 3. The biopsy-proven malignancy in the slightly upper outer posteriorright breast corresponds to a 2.4 cm mass with biopsy clip. There is a 1.0cm mass located 0.8 cm from the index malignancy that is suspicious for asatellite malignancy. Excision of this mass at the time of surgery is recommended. The findings and recommendations were discussed with the patient. BI-RADS CODE: BI-RADS Category 4c: Highly suspicious finding - biopsyshould be considered. This report was electronically signed by GABBI VEGAS M.D. on11/29/2016 12:55 PM . ADDENDUM #1 The purpose of this addendum is to add information to the left breastmammography section. On mammography, there is architectural distortion in the 10-11 o'clockleft breast, 6 cm from the nipple (CC 34, LM 29). Three cm posterior andmedial to the index architectural distortion, there is a smaller area ofarchitectural distortion on the CC view (CC 43). On MRI, it likely corresponds to a subtle area ofarchitectural distortion in the upper inner breast, 9 cm posterior to thenipple (series 6, image 85). This subtle distortion is 2cm posterior andmedial to the index distortion on MRI. Excision to include both areas of distortion is recommended. This report was electronically signed by GABBI VEGAS M.D. on11/29/2016 2:18 PM . Historical Provider MD FERRIS ORDERABLES * MAMMO BILAT DIAGNOSTIC (11/29/2016 12:03 PM CDT) Anatomical Region Laterality Modality Bilateral Other Impressions 11/29/2016 2:18 PM CDT AND RECOMMENDATION: 1. Mammographic and sonographic architectural distortion in the left breast at 10:00, 6 cm from the nipple is suspicious for malignancy. ??Ultrasound-guided core needle biopsy is recommended and will be performed later today. 2. ??Questioned left nipple retraction. 3. ??The biopsy-proven malignancy in the slightly upper outer posterior right breast corresponds to a 2.4 cm mass with biopsy clip. There is a 1.0 cm mass located 0.8 cm from the index malignancy that is suspicious for a satellite malignancy. ??Excision of this mass at the time of surgery is recommended. The findings and recommendations were discussed with the patient. BI-RADS CODE: BI-RADS Category 4c: Highly suspicious finding - biopsy should be considered. This report was electronically signed by GABBI VEGAS M.D. ??on 11/29/2016 12:55 PM . ADDENDUM #1 The purpose of this addendum is to add information to the left breast mammography section. On mammography, there is architectural distortion in the 10-11 o'clock left breast, 6 cm from the nipple (CC 34, LM 29). ??Three cm posterior and medial to the index architectural distortion, there is a smaller area of architectural distortion on the CC view (CC 43). ??On MRI, it likely corresponds to a subtle area of architectural distortion in the upper inner breast, 9 cm posterior to the nipple (series 6, image 85). ??This subtle distortion is 2cm posterior and medial to the index distortion on MRI. ?? Excision to include both areas of distortion is recommended. This report was electronically signed by GABBI VEGAS M.D. ??on 11/29/2016 2:18 PM . Narrative 11/29/2016 2:18 PM CDT ORIGINAL REPORT BILATERAL DIGITAL DIAGNOSTIC MAMMOGRAM AND LIMITED BILATERAL BREAST ULTRASOUND: TECHNIQUE: Images were performed using 2D full field digital mammography with 3D tomosynthesis images. CAD analysis was performed. CLINICAL HISTORY: 71 year-old who initially was referred to an outside facility for annual mammography as well as evaluation of a palpable right breast mass. The palpable right breast mass was biopsied with pathology of IDC. Bilateral breast MRI was performed to evaluate extent of disease and demonstrated the biopsy-proven malignancy in the right breast, borderline size right axillary lymph nodes, nonmass enhancement/architectural distortion in the left upper inner breast suspicious for malignancy, and a questionably mildly prominent left axillary lymph node. She is referred for further evaluation and possible biopsy. COMPARISON EXAM(S): ??2D and C-view images performed at outside facility on 10/30/2016. Screening mammogram 12/12/2011, 09/20/2010, 02/11/2006. BILATERAL MAMMOGRAPHIC FINDINGS: ??The breast tissue is heterogeneously dense, which could obscure detection of small masses. The biopsy-proven malignancy in the central outer posterior right breast corresponds to a 2.4 x 1.8 cm irregular mass that contains a biopsy clip. Just superior and lateral to the known malignancy, an oval mass measures 0.8 cm. Ultrasound is performed for further evaluation. The visualized right axillary lymph nodes are similar in appearance compared to 12/12/2011. There is architectural distortion in the 10-11 o'clock left breast, 6 cm from the nipple (CC 34, LM 29). Ultrasound is performed for further evaluation. Additionally, the left nipple appears to be retracted, which would represent a change compared to 2011. The visualized left axillary lymph nodes are similar in appearance compared to 12/12/2011 and 09/20/2010. LIMITED BILATERAL BREAST ULTRASOUND FINDINGS: Sonographic evaluation of the area of palpable abnormality in the right breast, both axillae, and the upper inner left breast was performed by the drapery inspector. Ultrasound of the left breast was also performed by the physician. The palpable, biopsy-proven malignancy in the right breast is at 8:00, 7 cm from the nipple. It corresponds to an irregular hypoechoic mass with antiparallel orientation that measures 2.5 x 1.9 x 1.5 cm. The biopsy clip is seen within the mass. In the right breast at 8:30, 7 cm from the nipple, an oval hypoechoic mass measures 1.0 x 0.5 x 0.7 cm. It is suspicious for a satellite malignancy. It is 0.8 cm from the index malignancy. Excision of this mass at the time of surgery is recommended. No right axillary lymphadenopathy. In the left breast at 10:00, 6 cm from the nipple, there is subtle architectural distortion with tethering of the adjacent breast tissue. It likely corresponds to the mammographic architectural distortion and is suspicious for malignancy. No left axillary lymphadenopathy. Procedure Note Gabbi Vegas MD - 07/19/2017 ORIGINAL REPORT BILATERAL DIGITAL DIAGNOSTIC MAMMOGRAM AND LIMITED BILATERAL BREASTULTRASOUND: TECHNIQUE: Images were performed using 2D full field digital mammographywith 3D tomosynthesis images. CAD analysis was performed. CLINICAL HISTORY: 71 year-old who [facility] [place] [facility] [place] as well as evaluation of a palpable rightbreast mass. [facility] Bilateral breast MRI was performed to evaluate extent of disease and demonstrated the biopsy- provenmalignancy in the right breast, borderline size right axillary lymphnodes, nonmass enhancement/architectural distortion in the left upperinner breast suspicious for malignancy, and a questionably mildly prominent left axillary lymph node. She isreferred for further evaluation and possible biopsy. COMPARISON EXAM(S): 2D and C-view images performed at outside facility on10/30/2016. Screening mammogram 12/12/2011, 09/20/2010, 02/11/2006. BILATERAL MAMMOGRAPHIC FINDINGS: The breast tissue is heterogeneouslydense, which could obscure detection of small masses. The biopsy-proven malignancy in the central outer posterior right breastcorresponds to a 2.4 x 1.8 cm irregular mass that contains a biopsy clip.Just superior and lateral to the known malignancy, an oval mass measures0.8 cm. Ultrasound is performed for further evaluation. The visualized right axillary lymph nodes aresimilar in appearance compared to 12/12/2011. There is architectural distortion in the 10-11 o'clock left breast, 6 cmfrom the nipple (CC 34, LM 29). Ultrasound is performed for furtherevaluation. Additionally, the left nipple appears to be retracted, whichwould represent a change compared to 2011. The visualized left axillary lymph nodes are similar in appearancecompared to 12/12/2011 and 09/20/2010. LIMITED BILATERAL BREAST ULTRASOUND FINDINGS: Sonographic evaluation ofthe area of palpable abnormality in the right breast, both axillae, andthe upper inner left breast was performed by the drapery inspector. Ultrasoundof the left breast was also performed by the physician. The palpable, biopsy-proven malignancy in the right breast is at 8:00, 7cm from the nipple. It corresponds to an irregular hypoechoic mass withantiparallel orientation that measures 2.5 x 1.9 x 1.5 cm. The biopsy clipis seen within the mass. In the right breast at 8:30, 7 cm from the nipple, an oval hypoechoic massmeasures 1.0 x 0.5 x 0.7 cm. It is suspicious for a satellite malignancy.It is 0.8 cm from the index malignancy. Excision of this mass at the timeof surgery is recommended. No right axillary lymphadenopathy. In the left breast at 10:00, 6 cm from the nipple, there is subtlearchitectural distortion with tethering of the adjacent breast tissue. Itlikely corresponds to the mammographic architectural distortion and issuspicious for malignancy. No left axillary lymphadenopathy. IMPRESSION AND RECOMMENDATION: 1. Mammographic and sonographic architectural distortion in the leftbreast at 10:00, 6 cm from the nipple is suspicious for malignancy.Ultrasound-guided core needle biopsy is recommended and will be performedlater today. 2. Questioned left nipple retraction. 3. The biopsy-proven malignancy in the slightly upper outer posteriorright breast corresponds to a 2.4 cm mass with biopsy clip. There is a 1.0cm mass located 0.8 cm from the index malignancy that is suspicious for asatellite malignancy. Excision of this mass at the time of surgery is recommended. The findings and recommendations were discussed with the patient. BI-RADS CODE: BI-RADS Category 4c: Highly suspicious finding - biopsyshould be considered. This report was electronically signed by GABBI VEGAS M.D. on11/29/2016 12:55 PM . ADDENDUM #1 The purpose of this addendum is to add information to the left breastmammography section. On mammography, there is architectural distortion in the 10-11 o'clockleft breast, 6 cm from the nipple (CC 34, LM 29). Three cm posterior andmedial to the index architectural distortion, there is a smaller area ofarchitectural distortion on the CC view (CC 43). On MRI, it likely corresponds to a subtle area ofarchitectural distortion in the upper inner breast, 9 cm posterior to thenipple (series 6, image 85). This subtle distortion is 2cm posterior andmedial to the index distortion on MRI. Excision to include both areas of distortion is recommended. This report was electronically signed by GABBI VEGAS M.D. on11/29/2016 2:18 PM . Historical Provider MAMMO ORDERABLES * MRI BREAST BILAT WWO CONTRAST (11/22/2016 7:10 PM CDT) Anatomical Region Laterality Modality Breast Bilateral Other Impressions 11/26/2016 1:58 PM CDT IMPRESSION: BI-RADS category 4C, suspicious findings. Mass within the lower outer right breast, low axilla, likely represents biopsy- proven malignancy or adenopathy and is partially imaged. No additional suspicious findings within the right breast. Nonmass enhancement with architectural distortion in the upper inner left breast suspicious for malignancy. Based on the images provided, this has likely not been biopsied. However, in hindsight, this is visible on the outside mammograms, although 3-D images did not upload correctly. RECOMMENDATION: ??Diagnostic mammography, and ultrasound is recommended of the left breast to guide possible biopsy. Biopsy of the right breast/axillary mass is recommended if not already performed is recommended. This report was electronically signed by YUMIKO PACHECO M.D. ??on 11/26/2016 1:58 PM . Narrative 11/26/2016 1:58 PM CDT MRI of the breasts with and without contrast COMPARISON: Prior mammograms performed 10/30/2016, 12/12/2011 and 09/20/2010, as well as right breast ultrasound performed 10/30/2016 HISTORY: IDC TECHNIQUE: Multiplanar multisequence MR imaging of both breasts before and following the administration of intravenous gadolinium contrast. Dynamic phase imaging was performed in the axial plane. Exam processed by and interpreted on a [employer] windows server support technician including 3-D volume rendering, subtraction image processing and contrast kinetic analysis. 10 cc of Gadovist intravenous. FINDINGS: Degree of postcontrast parenchymal enhancement: Mild and symmetric. Amount of fibroglandular tissue: ??Heterogeneously dense fibroglandular tissue RIGHT: Multiple nonenhancing cysts are seen within the right breast. Heterogeneously enhancing mass measuring up to 2.2 cm, possibly containing a biopsy marker is noted in the far lower outer right breast, likely low axilla consistent with biopsy- proven malignancy or adenopathy. This is only partially imaged due to its location within the breast coil, but the underlying chest wall appears to have normal enhancement. No additional enhancing mass or nonmass enhancement is seen within the right breast. Additional borderline in size lymph nodes are also seen in the right axilla. LEFT: A 3.3 x 1.8 cm region of nonmass enhancement with questionable architectural distortion is noted in the upper inner left breast, 6 m deep to the nipple. A thin line of enhancement extends from this region to the nipple. Questionable mildly prominent left axillary lymph node is noted. The skin and nipple enhanced to a normal degree. No abnormal enhancement is seen within the underlying chest wall. Scattered nonenhancing cysts are noted. Procedure Note Dorys Pacheco MD - 07/19/2017 MRI of the breasts with and without contrast COMPARISON: Prior mammograms performed 10/30/2016, 12/12/2011 and 09/20/2010,as well as right breast ultrasound performed 10/30/2016 HISTORY: IDC TECHNIQUE: Multiplanar multisequence MR imaging of both breasts before and followingthe administration of intravenous gadolinium contrast. Dynamic phaseimaging was performed in the axial plane. Exam processed by andinterpreted on a [employer] windows server support technician including 3-D volume rendering, subtraction image processing and contrast kineticanalysis. 10 cc of Gadovist intravenous. FINDINGS: Degree of postcontrast parenchymal enhancement: Mild and symmetric. Amount of fibroglandular tissue: Heterogeneously dense fibroglandulartissue RIGHT: Multiple nonenhancing cysts are seen within the right breast.Heterogeneously enhancing mass measuring up to 2.2 cm, possibly containinga biopsy marker is noted in the far lower outer right breast, likely lowaxilla consistent with biopsy-proven malignancy or adenopathy. This is only partially imaged due to itslocation within the breast coil, but the underlying chest wall appears tohave normal enhancement. No additional enhancing mass or nonmassenhancement is seen within the right breast. Additional borderline in size lymph nodes are also seen in the rightaxilla. LEFT: A 3.3 x 1.8 cm region of nonmass enhancement with questionablearchitectural distortion is noted in the upper inner left breast, 6 m deepto the nipple. A thin line of enhancement extends from this region to thenipple. Questionable mildly prominent left axillary lymph node is noted. The skin and nipple enhanced to a normaldegree. No abnormal enhancement is seen within the underlying chest wall.Scattered nonenhancing cysts are noted. IMPRESSION IMPRESSION: BI-RADS category 4C, suspicious findings. Mass within the lower outer right breast, low axilla, likely representsbiopsy- proven malignancy or adenopathy and is partially imaged. Noadditional suspicious findings within the right breast. Nonmass enhancement with architectural distortion in the upper inner leftbreast suspicious for malignancy. Based on the images provided, this haslikely not been biopsied. However, in hindsight, this is visible on theoutside mammograms, although 3-D images did not upload correctly. RECOMMENDATION: Diagnostic mammography, and ultrasound is recommended ofthe left breast to guide possible biopsy. Biopsy of the right breast/axillary mass is recommended if not alreadyperformed is recommended. This report was electronically signed by YUMIKO PACHECO M.D. on11/26/2016 1:58 PM . Historical Provider MR ORDERABLES * (ABNORMAL) CREATININE BLOOD - POCT (IP) [facility] (11/22/2016) Creatinine POCT 1.22 0.3 - 1.3 mg/dL [facility] eGFR POCT 46(A) 60 ml/min [facility] 11/22/2016 Historical Provider LAB - POINT OF CA RE ORDERABLES [facility] Care Teams Worm Packer Relationship Specialty Start Date End Date Kenny Fields MD [address] [place] [id number] PCP - General 07/03/22
--- OUTSIDE RECORDS SUMMARY | 2024-05-18 10:56 | XMS_ITS ---
Author Organization 1 OF [facility] Address [address] [facility] [address] [place] [address] Care Team Providers Care Immigration Judge Name Role Phone Troy YORK, Eduardo Primary Care Provider Karina Shields Unavailable [phone] Allergies Allergen (clinical drug ingredient) Drug/Non Drug Allergy documented on EMR Reaction Allergy Type Onset Date Status aspirin ASA (uncoded) Unknown Allergy Active REASON FOR VISIT High Risk Foot care Medications Medication SIG (Take, Route, Frequency, Duration) Notes Start Date End Date Status Vitamin D-3 Active Vital Signs Height 61.75 in 01/06/2024 Weight 216 lbs 01/06/2024 BMI 39.82 kg/m2 01/06/2024 Encounters Encounter Location Date Provider Diagnosis 1 OF [facility] [address] [address] 01/06/2024 Karina Jenkins 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 01/06/2024 Onychogryphosis (ICD-10 - L60.2) 01/06/2024 Nail dystrophy (ICD-10 - L60.3) 01/06/2024 Callus of foot (ICD-10 - L84) Plan Of Treatment Treatment Notes Assessment Notes Drug-induced polyneuropathy Considering the associated comorbidities and physical exam findings today, this patient is at substantial risk of developing serious foot complications in the absence of regular and professional palliative foot care. Next Appt Details Follow Up: 10-12 weeks or co ntact office PRN with any concerns, Reason: Provider Name:Karina Jenkins, 05/25/2024 10:40:00 AM, [address], [place], [address], Procedure Notes * Category Sub-Category Detail Notes PALLIATIVE FOOT CARE: Callus paring: (56604) Le ss than five calluses as noted above reduced with a sterile scalpel blade Nail debride (42187): Debridement of fiv e or less mycotic and/or hypertrophic nails, utilizing manual and electric debridement the affected nails were reduced the nails in length and thickness with curettage of debris from nail margins performed as needed. Nail thickness reduced by:, 10% Dystrophic nail trim (G0127) All dystrop hic nails reduced in length and thickness with curettage of debris from nail margins as needed Progress Notes * Seth DELCIDOB: [birth year] (78 yo F)Acc No.[id number]:01/06/2024 Progress Note Patient:?Jose DELCID Provider:?Karina Jenkins DPM :1945???Age:78 Y???Sex:Female D ate:01/06/2024 Address:[address] [place], [place] [id number] Pcp:Eduardo Simmons MD Subjective: * Chief Complaints: * ???High Risk Foot care * HPI: ???MA assisting with visit::?HPI/Rooming:?Tina.?Primary reason for visit::?At Risk Foot Care: ?78 y/o female RTO for at risk foot care.?Reports no acute issues with nails or calluses today. She sometimes gets numbness in her right toes..? * ROS:?* MULTI-SYSTEM REVIEW::?Nausea, fever or chillls?denies.?burning, tingling,numbness in feet? admits.?Any change in medications since last visit??denies.?Any changes in medical history/hospitalizations??denies.? * Medical History:? * Surgical History:?No Surgica l History documented. * Hospitalization/Major Diagno stic Procedure:? * Medications:?TakingVitamin D -3 Medication List reviewed and reconciled with the patientTaking Vitamin D-3 Medication List reviewed and reconciled with the patient * Allergies:?ASAno[Allergies V erified] Objective: * Vitals:?Wt:216lbs, Wt-k .98 kg, Ht: 61.75 in, BMI:39.82Index. * Examination: ???General Examination: ?Constitutional / Appearance: ?Well developed, No acute distress , Appropriate personal hygiene.?Mental status: ?Pleasant, cooperative, and oriented to person, place and time, Mood and affect: normal, Judgement and intellect: normal with appropriate response to questions.?Ambulatory assistive device: ? cane.?Shoes today:?Slip on shoes.?Lower Extremity VASCULAR: : ?Pulses:?DP and PT pulses, diminished , bilateral.?Temperature gradient: ?Decreased from proximal to distal, bilateral.?Pedal hair: ?absent , bilateral.?Venous insufficiency edema:?mild, bilateral ankles.?Capillary refill at distal toes? less than 3 seconds , bilateral.?Lower Extremity DERM: : ?Skin: ?relatively dry, thin, no open sores, without interdigital maceration, bilateral..?Nails:?Nail plates of: TA & T5 are elongated, relatively thickened, dystrophic, discolored, incurvated with some discomfort. All other nails appear elongated and dystrophic with abnormal shape, periungual debris, subungual hyperkeratosis..?Hyperkeratotic lesions LEFT foot: ?no significant hpk lesions noted.?Hyperkeratotic lesions RIGHT foot: ? medial hallux IPJ, plantar second toe.?Lower Extremity NEURO: : ?General sensation appears?slightly diminished, bilateral..?Muscle tone? diminished, bilateral.?Vibration perception: ? Exam of 04/25/2023?noted significantly diminished / absent per evaluation with 128Hz tuning fork applied to distal hallux compared to ipsilateral medial malleolus @ bilateral feet .?Lower Extremity MSK: : ?Gait? Slow gait with cane.?Foot type:? Bilateral lower extremity exhibits rectus foot and normal arch height.?Muscle strength: ?diminished, all 4 quadrants tested, bilateral.?Left lower extremity inspection and palpation: ?No palpable masses or nodules noted..?Right lower extremity inspection and palpation: ?Hyperextension of the DIPJ of the 2nd and 3rd toes., No palpable masses or nodules noted..? Assessment: * Assessment: 1.?Drug-induced polyneuropat hy - G62.0 (Primary)???2.?Onychogryphosis - L60.2???3.?Nail dystrophy - L60.3???4.?Callus of foot - L84??? Plan: * Treatment: * Procedures:?PALLIATIVE FOOT CARE::?Callus paring: ?(01927) Less than five calluses as noted above reduced with a sterile scalpel blade.?Nail debride (49665): ?Debridement of five or less mycotic and/or hypertrophic nails, utilizing manual and electric debridement the affected nails were reduced the nails in length and thickness with curettage of debris from nail margins performed as needed. Nail thickness reduced by:, 10%?.?Dystrophic nail trim (G0127)?All dystrophic nails reduced in length and thickness with curettage of debris from nail margins as needed.? * Procedure Codes:?35584 TRIM SKIN LESIONS, 2 TO 4, Modifiers: Q9 31050 DEBRIDE NAIL, 1-5, Modifiers: Q9 , [id number] TRIMMING DYSTROPHIC NAILS ANY #, Modifiers: Q9 , 59 * Preventive Medicine:? ??Screenings:?FALL RISK SCREENING?Fall Risk Assessment:?No falls in the past year * Follow Up:?10-12 weeks or co ntact office PRN with any concerns * Images: * Sign off status: Completed true * Provider:?Karina Jenkins DPM Date:?2023 Generated for Kimberly zee/Silvana/Valeri on:?05/18/2024 10:56 AM CHECK CLERK History and Physical Notes * HPI (History of Present Illness) Category Sub-Category Detail Notes Category Not es Primary reason for visit: At Risk Foot Care: 78 y/o female RTO for at risk foot care. Reports no acute issues with nails or calluses today. She sometimes gets numbness in her right toes. PETERSON assisting with visit: HPI/Rooming: Tina Examination Category Sub-Category Detail Notes Category Not es General Examination Mental status: Pleasant, co operative, and oriented to person, place and time, Mood and affect: normal, Judgement and intellect: normal with appropriate response to questions Shoes today: Slip on shoes Ambulatory assistive device: cane Constitutional / Appearance: Well develo ped, No acute distress , Appropriate personal hygiene Lower Extremity VASCULAR: Venous insufficiency edema: mild, bilateral ankles Pulses: DP and PT pulses, di minished, bilateral Temperature gradient: Decreased from pro ximal to distal, bilateral Pedal hair: absent , bilateral Capillary refill at distal toes less miguelito n 3 seconds , bilateral Lower Extremity NEURO: Vibration perception: Sandip fraire of 04/25/2023 noted significantly diminished / absent per evaluation with 128Hz tuning fork applied to distal hallux compared to ipsilateral medial malleolus @ bilateral feet General sensation appears slightly dimin ished, bilateral. Muscle tone diminished, bilatera l Lower Extremity MSK: Muscle strength: diminished , all 4 quadrants tested, bilateral Foot type: Bilateral lower extr emity exhibits rectus foot and normal arch height Left lower extremity inspect ion and palpation: No palpable masses or nodules noted. Right lower extremity inspec tion and palpation: Hyperextension of the DIPJ of the 2nd an d 3rd toes., No palpable masses or nodules noted. Gait Slow gait with cane Lower Extremity DERM: Skin: relatively dry, thin, no open sores, without interdigital maceration, bilateral. Nails: Nail plates of: TA & T5 are elongated, relatively thickened, dystrophic, discolored, incurvated with some discomfort. All other nails appear elongated and dystrophic with abnormal shape, periungual debris, subungual hyperkeratosis. Hyperkeratotic lesions LEFT foot: no sig nificant hpk lesions noted Hyperkeratotic lesions RIGHT foot: media l hallux IPJ, plantar second toe
--- OUTSIDE RECORDS SUMMARY | 2024-05-18 10:56 | XMS_ITS | Clinical Summary ---
Author Organization [facility] IFRAHIan DREW MS Address [address] [place] [address] Care Team Providers Care Core Assembly Supervisor Name Role Phone Unavailable Primary Care Provider Unavailabl e Allergies Active Allergy Reactions Criticality Noted Date Comments Aspirin Swelling Low 11/29/2016 Medications acetaminophen (TYLENOL) 500 mg Capsule Take 650 mg by mouth every 4 hours as needed for Pain, Mild / Temperature . Active cholecalciferol, vitamin D3, 5,000 unit Take 400 Units by mouth daily. 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, estrogen receptor positive 04/29/2017 Morbid obesity with body mass index of 40.0-49.9 04/04/2017 Obesity (BMI 35.0-39.9 without comorbidity) 10/2016 Resolved Problems Problem Noted Date Diagnosed Date Resolved Date Malignant neoplasm of overla pping sites of both breasts in female, estrogen receptor positive 02/26/2017 04/29/2017 Encounters Date Type Department Care Team Description 05/13/2024 External Device Data [facility] ABSTRACTION Provider, Abstract 05/13/2024 External Device Data [facility] ABSTRACTION Provider, Abstract 04/07/2024 External Device Data [facility] ABSTRACTION Provider, Abstract from Last 3 Months Family History Medical History Relation Name Comments Heart Disease Father Kidney Disease Mother Other Mother Liver Disease Sister Lung Cancer Sister Relation Name Status Comments Father Alive Mother Sister Social History Tobacco Use Types Packs/Day Years Used Date Smoking Tobacco: Never Smokeless Tobacco: Never Tobacco Cessation:Counseling Given: Not Answered Alcohol Use Standard Drinks/Week Comments No 0 (1 standard drink = 0.6 oz pur e alcohol) Comments No Sex and Gender Information Value Date Recorded Sex Assigned at Not on file Legal Sex Female 9:26 AM CDT Gender Identity Not on file Sexual Orientation Not on file Last Filed Vital Signs Vital Sign Reading Time Taken Comments Blood Pressure 140/68 12/04/2023 11:51 AM CDT Pulse 93 12/04/2023 11:51 AM CDT Temperature 36.7 ??C (98 ??F) 12/04/2023 11:51 AM CDT Respiratory Rate 16 12/04/2023 11:51 AM CDT Oxygen Saturation 95% 12/04/2023 11:51 AM CDT Inhaled Oxygen Concentration - - Weight 98 kg (216 lb) 12/04/2023 11:51 AM CDT Height 157.5 cm (5' 2 ) 11/27/2021 11:54 AM CDT Body Mass Index 39.51 11/27/2021 11:54 AM CDT Plan of Treatment Upcoming Encounters Date Type Department Care Team (Late st Contact Info) Description 05/26/2024 11:45 AM DIRT CONTRACTOR Office Visit [facility] Oncology and Hematology - Rakesh [address] [facility] [address] [place] [address] Eduardo Simmons MD [address] [facility] [address] [place] [address] Health Maintenance Due Date Last Done Comments DTAP/TDAP/TD VACCINES (1 - Tdap) 1966 Traditional Medicare (ACO) Annual Wellness Visit 04/24 PNEUMOCOCCAL VACCINE 65+ YEARS (1 of 1 - PCV) 04/24/18 98 ZOSTER VACCINE (1 of 2) 1997 RSV VACCINE (60+ or ) (1 - 1-dose 75+ series) 2022 INFLUENZA VACCINE (#1) 2023 OSTEOPOROSIS SCREENING Completed 04/27/2023 Insurance MEDICARE PART A AND B [facility] SUPP MEDICARE PART A AND B [facility] SUPP
--- OUTSIDE RECORDS SUMMARY | 2024-05-18 10:56 | XMS_ITS ---
Author Organization 1 OF Mino heaton [facility] Address [address] [facility] [address] [place] [address] Care Team Providers Care Curriculum Counselor Name Role Phone Troy YORK, Eduardo Primary Care Provider Karina Shields Unavailable [phone] Allergies Allergen (clinical drug ingredient) Drug/Non Drug Allergy documented on EMR Reaction Allergy Type Onset Date Status aspirin ASA (uncoded) Unknown Allergy Active REASON FOR VISIT High Risk Foot care Medications Medication SIG (Take, Route, Frequency, Duration) Notes Start Date End Date Status Vitamin D-3 Active Lipitor Active Vital Signs Height 61.75 in 03/16/2024 Weight 211 lbs 03/16/2024 BMI 38.9 kg/m2 03/16/2024 Encounters Encounter Location Date Provider Diagnosis 1 OF Mino Cameron [facility] [address] [facility] [address] [address] 03/16/2024 Karina Jenkins 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 03/16/2024 Onychogryphosis (ICD-10 - L60.2) 03/16/2024 Nail dystrophy (ICD-10 - L60.3) 03/16/2024 Callus of foot (ICD-10 - L84) Plan [...] AM, [address], [place], [address], Procedure Notes * Category Sub-Category Detail Notes PALLIATIVE FOOT CARE: Callus paring: , (01500) Single callus as noted above reduced with a sterile scalpel blade, Nail debride (08468): Debridement of fiv e or less mycotic [...] * Seth DELCIDOB: 8 (78 yo F)Acc No.[id number]:03/16/2024 Progress Note Patient:?Jose DELCID Provider:?Karina Jenkins DPM :1945???Age:78 Y???Sex:Female D ate:03/16/2024 Address:[address] [place], [place] [id number] Pcp:Eduardo Simmons MD Subjective: * Chief Complaints: * ???High Risk Foot care * HPI: ???MA assisting with visit::?HPI/Rooming:?Tina.?Primary reason for visit::?At Risk Foot Care: ?78 y/o female RTO for at risk foot care.?Reports no acute issues with nails or calluses today.?.? * ROS:?* MULTI-SYSTEM REVIEW::?Nausea, fever or chillls?denies.?burning, tingling,numbness in feet? admits.?Any change in medications since last visit??denies.?Any changes in medical history/hospitalizations??denies.? * Medical History:? * Surgical History:?No Surgica l History documented. * Hospitalization/Major Diagno stic Procedure:? * Medications:?TakingLipitor V itamin D-3 Medication List reviewed and reconciled with the patientTaking Lipitor Taking Vitamin D-3 Medication List reviewed and reconciled with the patient * Allergies:?ASAno[Allergies V erified] Objective: * Vitals:?Wt:211lbs, Wt-k .71 kg, Ht: 61.75 in, BMI:38.9Index. * Examination: ???General Examination: ?Constitutional / Appearance: ?Well developed, No acute distress , Appropriate personal hygiene.?Mental status: ?Pleasant, cooperative, and oriented to person, place and time, Mood and affect: normal, Judgement and intellect: normal with appropriate response to questions.?Ambulatory assistive device: ? cane.?Shoes today:?slip on shoes.?Lower Extremity VASCULAR: : ?Pulses:?DP and PT pulses, diminished , bilateral.?Temperature gradient: ?Decreased from proximal to distal, bilateral.?Pedal hair: ?absent , bilateral.?Venous insufficiency edema:?mild, bilateral ankles.?Capillary refill at distal toes? less than 5 seconds , bilateral.?Lower Extremity DERM: : ?Skin: ?relatively dry, thin, no open sores,?bilateral..?Nails:?Nail plates of: TA & T5 are elongated, relatively thickened, dystrophic, discolored, incurvated with some discomfort. All other nails appear elongated and dystrophic with abnormal shape, periungual debris, subungual hyperkeratosis..?Hyperkeratotic lesions LEFT foot: ?no significant hpk lesions noted.?Hyperkeratotic lesions RIGHT foot: ? medial hallux IPJ.?Lower Extremity NEURO: : ?General sensation appears?slightly diminished, [...] * Treatment: * Procedures:?PALLIATIVE FOOT CARE::?Callus paring: ?, (62488) Single callus as noted above reduced with a sterile scalpel blade,.?Nail debride (60296): ?Debridement of five or less mycotic and/or hypertrophic nails, utilizing manual and electric debridement the affected nails were reduced the nails in length and thickness with curettage of debris from nail margins performed as needed. Nail thickness reduced by:, 10%?.?Dystrophic nail trim (G0127)?All dystrophic nails reduced in length and thickness with curettage of debris from nail margins as needed.? * Procedure Codes:?89354 TRIM SKIN LESION, Modifiers: Q9 62479 DEBRIDE NAIL, 1-5, Modifiers: Q9 , [id number] TRIMMING DYSTROPHIC NAILS ANY #, Modifiers: Q9 , 59 * Preventive Medicine:? ??Screenings:?FALL RISK SCREENING?Fall Risk Assessment:?No falls in the past year * Follow Up:?10-12 weeks or co ntact office PRN with any concerns * Images: * LAIN Sign off status: Completed true * Provider:?Karina Jenkins DPM Date:?2023 Generated for Kimberly zee/Silvana/Valeri on:?05/18/2024 10:55 AM CHAPLAIN History and Physical Notes * HPI (History of Present Illness) Category Sub-Category Detail Notes Category Not es Primary reason for visit: At Risk Foot Care: 78 y/o female RTO for at risk foot care. Reports no acute issues with nails or calluses today. MA assisting with visit: HPI/Rooming: Tina Examination Category Sub-Category Detail Notes Category Not es General Examination Mental status: Pleasant, co operative, and oriented to person, place and time, Mood and affect: normal, Judgement and intellect: normal with appropriate response to questions Shoes today: slip on shoes Ambulatory assistive device: cane Constitutional / Appearance: Well develo ped, No acute distress , Appropriate personal hygiene Lower Extremity VASCULAR: Venous insufficiency edema: mild, bilateral ankles Pulses: DP and PT pulses, di minished, bilateral Temperature gradient: Decreased from pro ximal to distal, bilateral Pedal hair: absent , bilateral Capillary refill at distal toes less miguelito n 5 seconds , bilateral Lower Extremity NEURO: Vibration [...] cane Lower Extremity DERM: Skin: relatively dry, thi n, no open sores, bilateral. Nails: Nail plates of: TA & T5 are elongated, relatively thickened, dystrophic, discolored, incurvated with some discomfort. All other nails appear elongated and dystrophic with abnormal shape, periungual debris, subungual hyperkeratosis. Hyperkeratotic lesions LEFT foot: no sig nificant hpk lesions noted Hyperkeratotic lesions RIGHT foot: media l hallux IPJ
--- OUTSIDE RECORDS SUMMARY | 2024-05-18 10:56 | XMS_ITS | Patient Health Record ---
Author Organization 1 OF Mino heaton [facility] Address [address] [place] [address] Care Team Providers Care Farm Specialist Name Role Phone Troy YORK, Eduardo Primary Care Provider Karina Shields Unavailable [phone] Allergies Allergen (clinical drug ingredient) Drug/Non Drug Allergy documented on EMR Reaction Allergy Type Onset Date Status aspirin ASA (uncoded) Unknown Allergy Active Reason For Referral No Information Medications Medication SIG (Take, Route, Frequency, Duration) Notes Start Date End Date Status Vitamin D-3 Active Lipitor Active Social History Tobacco Use: Social History Observation Description Date Details (start date - stop date) Never Smoker NA - NA Tobacco Use/Smoking Question Answer Notes Are you a nonsmoker Problems Problem Type SNOMED Code ICD Code Onset Dates Problem Status W/U Status Risk Notes Problem [id number] 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) Active confirmed Vital Signs Height 61.75 in 03/16/2024 Weight 211 lbs 03/16/2024 BMI 38.9 kg/m2 03/16/2024 Encounters Encounter Location Date Provider Diagnosis 1 OF M[facility] [address] [place] [address] 07/18/2023 Karina Jenkins 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 ; Onychogryphosis L60.2 ; Nail dystrophy L60.3 and Callus of foot L84 1 OF Mino [facility] [address] [place] [address] 10/28/2023 Karina Jenkins 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 ; Onychogryphosis L60.2 ; Nail dystrophy L60.3 and Callus of foot L84 1 OF Mino Cameron [facility] [address] [place] [address] 01/06/2024 Karina Jenkins 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 ; Onychogryphosis L60.2 ; Nail dystrophy L60.3 and Callus of foot L84 1 OF Mino Cameron [facility] [address] [place] [address] 03/16/2024 Karina Jenkins 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 10/28/2023 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 01/06/2024 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 03/16/2024 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 03/16/2024 Onychogryphosis (ICD-10 - L60.2) 01/06/2024 Onychogryphosis (ICD-10 - L60.2) 10/28/2023 Onychogryphosis (ICD-10 - L60.2) 07/18/2023 Onychogryphosis (ICD-10 - L60.2) 07/18/2023 Nail dystrophy (ICD-10 - L60.3) 10/28/2023 Nail dystrophy (ICD-10 - L60.3) 01/06/2024 Nail dystrophy (ICD-10 - L60.3) 03/16/2024 Nail dystrophy (ICD-10 - L60.3) 03/16/2024 Callus of foot (ICD-10 - L84) 01/06/2024 Callus of foot (ICD-10 - L84) 10/28/2023 Callus of foot (ICD-10 - L84) 07/18/2023 Callus of foot (ICD-10 - L84) Plan Of Treatment Next Appt Details Provider Name:Karina Jenkins, 05/25/2024 10:40:00 AM, [address], [place], [address], Insurance Providers Payer Name Payer Address Payer Phone Subscriber Number Group Number Insured Name Patient Relationship to Insured Coverage Start Date Coverage End Date Medicare [address] [place], [place] [id number] Jose Delcid Self - patient is the insured [facility] and [facility] [address] [place] [address] [id number] Plan F Jsoe Delcid Self - patient is the insured Medical (General) History Medical History History ICD Code Osteoarthritis in knees Breast CA Vein Problems Hyperlipidemia Surgical History Surgery Date(Month/Year)
--- OUTSIDE RECORDS SUMMARY | 2024-05-18 10:56 | XMS_ITS | Clinical Summary ---
Author Organization [facility] Address [address] [place] [address]. [place] [address] [place] [address] Care Team Providers Care Microstrategy Bi Developer Name Role Phone Unavailable Primary Care Provider Unavailabl e Social History Tobacco Use Types Packs/Day Years Used Date Smoking Tobacco: Never Assessed Comments Unknown Sex and Gender Information Value Date Recorded Sex Assigned at Not on file Legal Sex Female 4:36 PM CDT Gender Identity Not on file Sexual Orientation Not on file Plan of Treatment Health Maintenance Due Date Last Done Comments Hepatitis C 1963 DTaP, Tdap and Td Vaccines ( 1 - Tdap) 1966 Zoster Vaccines (1 of 2) 1997 Dexa Scan (General) 2012 Pneumococcal Vaccine: 65+ Ye ars (1 of 1 - PCV) 2012 RSV Immunization or 60+ Years (1 - 1-dose 75+ series) 2022 COVID-19 Vaccine (2023-2 5 season) 2023 Influenza Adult (#1) 2024 Meningococcal B Vaccine Aged Out No l onger eligible based on patient's age to complete this topic Meningococcal Vaccine Aged Out No danica giovani eligible based on patient's age to complete this topic RSV Immunizations Under 20 Months Aged Out No longer eligible based on patient's age to complete this topic
--- OUTSIDE RECORDS SUMMARY | 2024-05-18 10:56 | XMS_ITS ---
Author Organization 1 OF Mino heaton [facility] Address [address] [facility] [address] [place] [address] Care Team Providers Care Access Registrar Name Role Phone Troy YORK, Eduardo Primary Care Provider Karina Shields Unavailable [phone] Allergies Allergen (clinical drug ingredient) Drug/Non Drug Allergy documented on EMR Reaction Allergy Type Onset Date Status aspirin ASA (uncoded) Unknown Allergy Active REASON FOR VISIT High Risk Foot care Medications Medication SIG (Take, Route, Frequency, Duration) Notes Start Date End Date Status Vitamin D-3 Active Vital Signs Height 61.75 in 10/28/2023 Weight 213 lbs 10/28/2023 BMI 39.27 kg/m2 10/28/2023 Encounters Encounter Location Date Provider Diagnosis 1 OF Mino Cameron [facility] [address] [employer] [address] [address] 10/28/2023 Karina Jenkins 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 10/28/2023 Onychogryphosis (ICD-10 - L60.2) 10/28/2023 Nail dystrophy (ICD-10 - L60.3) 10/28/2023 Callus of foot (ICD-10 - L84) Plan [...] Name:Karina Jenkins, 05/25/2024 10:40:00 AM, [address], [place], [address], Procedure Notes * Category Sub-Category Detail Notes PALLIATIVE FOOT CARE: Callus paring: (87238) Le ss than five calluses as noted above reduced with a sterile scalpel blade Nail debride (72200): Debridement of fiv e or less mycotic [...] * Seth DELCIDOB: 8 (78 yo F)Acc No.[id number]:10/28/2023 Progress Note Patient:?Jose DELCID Provider:?Karina Jenkins DPM :1945???Age:78 Y???Sex:Female D ate:10/28/2023 Address:[address] [place], [place] [address] Pcp:Eduardo Simmons MD Subjective: * Chief Complaints: * ???High Risk Foot care * HPI: ???MA assisting with visit::?HPI/Rooming:?Kaveh.?Primary reason for visit::?At Risk Foot Care: ?78 y/o female RTO for at risk foot care.?Reports no acute issues with nails or calluses today..? * ROS:?* MULTI-SYSTEM REVIEW::?Nausea, fever or chillls?denies.?Any change in medications since last visit??denies.?Any changes in medical history/hospitalizations??denies.? * Medical History:? * Surgical History:?No Surgica l History documented. * Hospitalization/Major Diagno stic Procedure:? * Family History:? Lung CA, Hep C. * Medications:?TakingVitamin D -3 Medication List reviewed and reconciled with the patientTaking Vitamin D-3 Medication List reviewed and reconciled with the patient * Allergies:?ASAno[Allergies V erified] Objective: * Vitals:?Wt:213lbs, Wt-k .62 kg, Ht: 61.75 in, BMI:39.27Index. * Examination: ???General Examination: ?Constitutional / Appearance: ?Well developed, No acute distress , Appropriate personal hygiene.?Mental status: ?Pleasant, cooperative, and oriented to person, place and time, Mood and affect: normal, Judgement and intellect: normal with appropriate response to questions.?Ambulatory assistive device: ? cane.?Shoes today:?clogs.?Lower Extremity VASCULAR: : ?Pulses:?DP and PT pulses, diminished , bilateral.?Temperature gradient: ?Decreased from proximal to distal, bilateral.?Pedal hair: ?absent , bilateral.?Venous insufficiency edema:?mild, bilateral ankles and feet.?Capillary refill at distal toes? less than 3 [...] extremity exhibits rectus foot and normal arch height.?Left lower extremity inspection and palpation: ?No palpable masses or nodules noted..?Right lower extremity inspection and palpation: ?Hyperextension of the DIPJ of the 2nd and 3rd toes., No palpable masses or nodules noted..? Assessment: * Assessment: 1.?Drug-induced polyneuropat hy - G62.0 (Primary)?2.?Onychogryphosis - L60.2?3.?Nail dystrophy - L60.3?4.?Callus of foot - L84? Plan: * Treatment: * Procedures:?PALLIATIVE FOOT CARE::?Callus paring: ?(60488) Less than five calluses as noted above reduced with a sterile scalpel blade.?Nail debride (46617): ?Debridement of five or less mycotic and/or hypertrophic nails, utilizing manual and electric debridement the affected nails were reduced the nails in length and thickness with curettage of debris from nail margins performed as needed. Nail thickness reduced by:, 10%?.?Dystrophic nail trim (G0127)?All dystrophic nails reduced in length and thickness with curettage of debris from nail margins as needed.? * Procedure Codes:?69203 TRIM SKIN LESIONS, 2 TO 4, Modifiers: Q9 67897 DEBRIDE NAIL, 1-5, Modifiers: Q9 , [id number] TRIMMING DYSTROPHIC NAILS ANY #, Modifiers: Q9 , 59 * Follow Up:?10-12 weeks or co ntact office PRN with any concerns * Images: * Sign off status: Completed true * Provider:Pool Jenkins DPM Date:?2023 Generated for Kimberly zee/Silvana/eTransmitting on:?05/18/2024 10:56 AM PRODUCER ARBORIST MANAGER History and Physical Notes * HPI (History of Present Illness) Category Sub-Category Detail Notes Category Not es Primary reason for visit: At Risk Foot Care: 78 y/o female RTO for at risk foot care. Reports no acute issues with nails or calluses today. MA assisting with visit: HPI/Rooming: Kaveh Examination Category Sub-Category Detail Notes Category Not es General Examination Mental status: Pleasant, co operative, and oriented to person, place and time, Mood and affect: normal, Judgement and intellect: normal with appropriate response to questions Shoes today: clogs Ambulatory assistive device: cane Constitutional / Appearance: Well develo ped, No acute distress , Appropriate personal hygiene Lower Extremity VASCULAR: Venous insufficiency e mari: mild, bilateral ankles and feet Pulses: DP and PT pulses, di minished, bilateral Temperature gradient: Decreased from pro ximal to distal, bilateral Pedal hair: absent , bilateral Capillary refill at distal toes less miguelito n 3 seconds , bilateral Lower Extremity NEURO: Vibration perception: Exa m of 04/25/2023 noted significantly diminished / absent per evaluation with 128Hz tuning fork applied to distal hallux compared to ipsilateral medial malleolus @ bilateral feet General sensation appears slightly dimin ished, bilateral. Muscle tone diminished, bilatera l Lower Extremity MSK: Foot type: Bilateral l ower extremity exhibits rectus foot and normal arch height [...]
--- OUTSIDE RECORDS SUMMARY | 2024-05-18 10:56 | XMS_ITS | Encounter Summary ---
Author Organization [facility] Address [address] [place] [address] Care Team Providers Care Binder Selector Name Role Phone Kenny Fields MD Primary Care Provider [phone] Encounter Details Date Type Department Care Team (Late st Contact Info) Description 05/15/2019 Chart Note [facility] Radiation Therapy [address] [place] [address] [place] [address] [place] [address] Social History Tobacco Use Types Packs/Day Years Used Date Smoking Tobacco: Never Smokeless Tobacco: Never Alcohol Use Standard Drinks/Week Comments No 0 (1 standard drink = 0.6 oz pur e alcohol) Comments No Sex and Gender Information Value Date Recorded Sex Assigned at Not on file Legal Sex Female 9:26 AM CDT Gender Identity Not on file Sexual Orientation Not on file documented as of this encounter Plan of Treatment Upcoming Encounters Date Type Department Care Team (Late st Contact Info) Description 05/26/2024 11:45 AM HIV CTS SPECIALIST Office Visit [facility] Oncology and Hematology - Rakesh [address] [facility] [address] [place] [address] Eduardo Simmons MD [address] [facility] [address] [place] [address] documented as of this encounter Visit Diagnoses Not on filedocumented in this encounter Care Teams Binder Selector Relationship Specialty Start Date End Date Kenny Fields MD [address] [facility] [address] [place] [phone] PCP - General Internal Medicine 02/26/17 11/27/22 documented as of this encounter
--- OUTSIDE RECORDS SUMMARY | 2024-05-18 10:57 | XMS_ITS | Encounter Summary ---
Author Organization [facility] Address [address] [place] [address] Care Team Providers Care Rn Call Center Name Role Phone Kenny Fields MD Primary Care Provider [phone] Encounter Details Date Type Department Care Team (Late st Contact Info) Description 08/30/2017 Chart Note [facility] Radiation Therapy [address] [place] [address] [place] [address] [place] [address] Social History Tobacco Use Types [...] st Contact Info) Description 05/26/2024 11:45 AM COCONUT JELLY ROLLER Office Visit [facility]3] Oncology and Hematology - Rakseh 2[address] [facility] [address] [place] [address] Eduardo Simmons MD [address] [facility] [address] [place] [address] documented as of this encounter Visit Diagnoses Not on filedocumented in this encounter Care Teams Rn Call Center Relationship Specialty Start Date End Date Kenny Fields MD [address] [facility] [address] [place] [address] PCP - General Internal Medicine 02/26/17 11/27/22 documented as of this encounter
[2024-05-18 12:46] LABS: Alanine Aminotransferase 29 U/L (6-35); Albumin Level 4.4 g/dL (3.5-5.1); Alkaline Phosphatase 70 U/L (38-126); Anion Gap 11 mmol/L (4-12); Aspartate Amino Transferase 40 U/L (14-36); Bilirubin,Total 0.9 mg/dL (0.2-1.3); Blood Urea Nitrogen 14 mg/dL (7-17); Calcium 9.3 mg/dL (8.4-10.2); Carbon Dioxide 28 mmol/L (22-30); Chloride 102 mmol/L (98-107); Estimated Glomerular Filt Rate > 60; Glucose 157 mg/dL (65-110); Potassium 4.3 mmol/L (3.4-5.0); Sodium 141 mmol/L (137-145)
[2024-05-20 03:44] LABS: CA 15-3 13 U/mL (<32)
== END 2024-05-18 10:05 | disposition home or self-care (01) ==
LOC: ANHLAB 10:05
PROVIDERS: PCP Nurse Practitioner Family; Visit Provider Internal Medicine Hematology & Oncology
DX: C50.212 Malignant neoplasm of upper-inner quadrant of left female breast (principal)
CPT/HCPCS: 36415; 80053; 85025; 86300

== ENCOUNTER 2024-11-13 10:53 | Outpatient (CLI) | payer MEDICARE, SELFPAY ==
--- OUTSIDE RECORDS SUMMARY | 2024-11-13 10:56 | XMS_ITS | Clinical Summary ---
Author Organization [facility] Address Count includes the [facility] [place] [address] Care Team Providers Care Chemist Assistant Name Role Phone Unavailable Primary Care Provider [...] Td Vaccines ( 1 - Tdap) 1966 Pneumococcal Vaccine: 50+ Ye ars (1 of 1 - PCV) 1997 Zoster Vaccines (1 of 2) 1997 Dexa Scan (General) 2012 RSV Immunization or 60+ Years (1 - 1-dose 75+ series) 2022 COVID-19 Vaccine (2023-2 5 season) 2023 Meningococcal B Vaccine Aged Out No l onger eligible based on patient's age to complete this topic Meningococcal Vaccine Aged Out No danica giovani eligible based on patient's age to complete this topic RSV Immunizations Under 20 Months Aged Out No longer eligible based on patient's age to complete this topic
--- OUTSIDE RECORDS SUMMARY | 2024-11-13 10:56 | XMS_ITS | Encounter Summary ---
Author Organization [facility] Address [address] [place] [address] Care Team Providers Care Fitness Technician Name Role Phone Kenny Fields MD Primary Care Provider [phone] Encounter Details Date Type Department Care Team (Late st Contact Info) Description 08/30/2017 Chart Note [facility] Radiation Therapy [address] [place] [address] [place] [address] [place] [address] Social History Tobacco Use Types [...] Care Team (Late st Contact Info) Description 11/24/2024 11:30 AM CDT Office Visit [facility] Oncology and Hematology - Rakesh [address] [facility] [address] [place] [address] Eduardo Simmons MD [address] [facility] [address] [place] [address] documented as of this encounter Visit Diagnoses Not on filedocumented in this encounter Care Teams Fitness Technician Relationship Specialty Start Date End Date Kenny Fields MD [address] [facility] [address] [place] [phone] PCP - General Internal Medicine 02/26/17 11/27/22 documented as of this encounter
--- OUTSIDE RECORDS SUMMARY | 2024-11-13 10:56 | XMS_ITS | Encounter Summary ---
Author Organization [facility] Address [address] [place] [address] Care Team Providers Care Web Page Developer Name Role Phone Kenny Fields MD Primary Care Provider [phone] Encounter Details Date Type Department Care Team (Late st Contact Info) Description 05/15/2019 Chart Note [facility] Radiation Therapy [address] [place] [address] [place] [address] [place] [address] Social History Tobacco Use Types [...] Description 11/24/2024 11:30 AM CDT Office Visit [facility]3] Oncology and Hematology - Rakesh 2[address] [facility] [address] [place] [address] Eduardo Simmons MD [address] [facility] [address] [place] [address] documented as of this encounter Visit Diagnoses Not on filedocumented in this encounter Care Teams Web Page Developer Relationship Specialty Start Date End Date Kenny Fields MD [address] [facility] [address] [place] [phone] PCP - General Internal Medicine 02/26/17 11/27/22 documented as of this encounter
--- OUTSIDE RECORDS SUMMARY | 2024-11-13 10:56 | XMS_ITS | Patient Health Record ---
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 Vital Signs Height 61.75 in 10/19/2024 Weight 211 lbs 10/19/2024 BMI 38.9 kg/m2 10/19/2024 Encounters Encounter Location Date Provider Diagnosis 1 OF Mino Cameron DPM [facility] [address] [place] [address] 01/06/2024 Karina Jenkins 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 ; Onychogryphosis L60.2 ; Nail dystrophy L60.3 and Callus of foot L84 1 OF Mino Cameron DPM [facility] [address] [place] [address] 03/16/2024 Karina Jenkins 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 ; Onychogryphosis L60.2 ; Nail dystrophy L60.3 and Callus of foot L84 1 OF Mino Espinoza [address] [address] 05/25/2024 Karina Jenkins 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 ; Onychogryphosis L60.2 ; Nail dystrophy L60.3 and Callus of foot L84 1 OF [place] [address] [address] 08/10/2024 Karina Jenkins 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 ; Onychogryphosis L60.2 ; Nail dystrophy L60.3 and Callus of foot L84 1 OF [place] [address] [address] 10/19/2024 Karina Jenkins 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 ; Onychogryphosis [...] of regular and professional palliative foot care. 05/25/2024 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 08/10/2024 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 10/19/2024 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 10/19/2024 Onychogryphosis (ICD-10 - L60.2) 08/10/2024 Onychogryphosis (ICD-10 - L60.2) 05/25/2024 Onychogryphosis (ICD-10 - L60.2) 03/16/2024 Onychogryphosis (ICD-10 - L60.2) 01/06/2024 Onychogryphosis (ICD-10 - L60.2) 01/06/2024 Nail dystrophy (ICD-10 - L60.3) 03/16/2024 Nail dystrophy (ICD-10 - L60.3) 05/25/2024 Nail dystrophy (ICD-10 - L60.3) 08/10/2024 Nail dystrophy (ICD-10 - L60.3) 10/19/2024 Nail dystrophy (ICD-10 - L60.3) 10/19/2024 Callus of foot (ICD-10 - L84) 08/10/2024 Callus of foot (ICD-10 - L84) 05/25/2024 Callus of foot (ICD-10 - L84) 03/16/2024 Callus of foot (ICD-10 - L84) 01/06/2024 Callus of foot (ICD-10 - L84) Plan Of Treatment Next Appt Details Provider Name:Gage Cameron, 12/28/2024 11:10:00 AM, [address] [place] [address], [address], [place], [address], Insurance Providers Payer Name Payer Address Payer Phone Subscriber Number Group Number Insured Name Patient Relationship to Insured Coverage Start Date Coverage End Date Medicare [address] [facility] [place] [id number] Jose Delcid Self - patient is the insured [facility] and [facility] [address] [place] [address] [id number] Plan F Jose Delcid Self - patient is the insured Medical (General) History Medical History History ICD Code Osteoarthritis in knees Breast CA Vein Problems Hyperlipidemia Pre diabetic Surgical History Surgery Date(Month/Year)
--- OUTSIDE RECORDS SUMMARY | 2024-11-13 10:56 | XMS_ITS | Clinical Summary ---
Author Organization [facility] [place] Address [address] [place] [address] Care Team Providers Care Ross Carrier Driver Name Role Phone Unavailable Primary Care Provider Unavailabl e Allergies Active Allergy Reactions Criticality Noted Date Comments Aspirin Swelling Low 11/29/2016 Medications acetaminophen (TYLENOL) 500 mg Capsule Take 650 mg by mouth every 4 hours as needed for Pain, Mild / Temperature . Active cholecalciferol, vitamin D3, 5,000 unit Take 400 Units by mouth daily. Active atorvastatin (LIPITOR) 10 mg tablet Take 10 mg by mouth daily at bedtime. Active Lactobac no.41/Bifidobact no.7 (PROBIOTIC-10 ORAL) Take by mouth. Active L. acidophilus/L. rhamnosus (PROBIOTIC ORAL) Take by mouth. Active Active Problems Problem Noted Date Diagnosed [...] Encounters Date Type Department Care Team Description 11/04/2024 External Device Data STL ABSTRACTION Provider, Abstract 11/03/2024 External Device Data STL ABSTRACTION Provider, Abstract 10/13/2024 External Device Data STL ABSTRACTION Provider, Abstract 09/22/2024 External Device Data STL ABSTRACTION Provider, Abstract 09/15/2024 External Device Data STL ABSTRACTION Provider, Abstract 09/10/2024 External Device Data STL ABSTRACTION Provider, Abstract 09/09/2024 External Device Data STL ABSTRACTION Provider, Abstract 09/08/2024 External Device Data STL ABSTRACTION Provider, Abstract [...] Sign Reading Time Taken Comments Blood Pressure 133/73 05/26/2024 12:02 PM PREPARATORY TECHNICIAN Pulse 67 05/26/2024 12:02 PM PREPARATORY TECHNICIAN Temperature 36.6 C (97.8 F) 05/26/2024 12:02 PM PREPARATORY TECHNICIAN Respiratory Rate 16 12/04/2023 11:51 AM CDT Oxygen Saturation 96% 05/26/2024 12:02 PM PREPARATORY TECHNICIAN Inhaled Oxygen Concentration - - Weight 94.5 kg (208 lb 6.4 oz) 05/26/2024 12:02 PM PREPARATORY TECHNICIAN Height 157.5 cm (5' 2) 11/27/2021 11:54 AM CDT Body Mass Index 38.12 11/27/2021 11:54 AM CDT Plan of Treatment Upcoming Encounters Date Type Department Care Team (Late st Contact Info) Description 11/24/2024 11:30 AM CDT Office Visit [facility] Oncology and Hematology - Rakesh [address] [facility] [address] [place] [address] Eduardo Simmons MD [address] [facility] [address] [place] [address] Health Maintenance Due Date Last Done Comments DTAP/TDAP/TD VACCINES (1 - Tdap) 1964 Traditional Medicare (ACO) Annual Wellness Visit 04/24 PNEUMOCOCCAL VACCINE 50+ YEARS (1 of 1 - PCV) 04/24/18 98 ZOSTER VACCINE (1 of 2) 1997 RSV VACCINE (60+ or ) (1 - 1-dose 75+ series) 2022 INFLUENZA VACCINE (#1) 2024 OSTEOPOROSIS SCREENING 04/27/2028 04/27/2023 Insurance MEDICARE PART A AND B [facility] SUPP MEDICARE PART A AND B BCBS SUPP
--- OUTSIDE RECORDS SUMMARY | 2024-11-13 10:56 | XMS_ITS | Clinical Summary ---
Author Organization [facility] Address [address] [place] [address] Care Team Providers Care Structural Steel Ironworker Name Role Phone Kenny Fields MD Primary Care Provider [phone] Source Comments [facility],non-owned Affiliates and Associated Physician Practices is amultiple site organization consisting of ambulatory clinics and hospital sitesin [place], [place], [place] and [place]. This disclosure is being madepursuant to the Care Everywhere program and may not contain all information available regarding this patient. Last updated 18.[facility] Allergies Active Allergy Reactions Criticality Noted Date Comments Aspirin Swelling Low 11/29/2016 Social History Tobacco Use Types Packs/Day Years Used Date Smoking Tobacco: Never Assessed Comments Unknown Sex and Gender Information Value Date Recorded Sex Assigned at Not on file Legal Sex Female 5:32 PM TELEVISION ANNOUNCER Gender Identity Not on file Sexual Orientation Not on file Plan of Treatment Health Maintenance Due Date Last Done Comments BONE DENSITY TESTING 1945 HEPATITIS C SCREENING 04/19/1965 DTAP/TDAP/TD VACCINES (1 - Tdap) 1966 PNEUMOCOCCAL VACCINE 50+ (1 of 1 - PCV) 1997 ZOSTER VACCINE (1 of 2) 1997 Respiratory Syncytial Virus (RSV) Vaccine Pt: or over 60 yrs (1 - 1-dose 75+ series) 2022 COVID-19 VACCINE (1 - 2023-2 5 season) 2023 DEPRESSION SCREENING 04/22/2024 INFLUENZA VACCINE (#1) 2024 HEPATITIS B VACCINE Aged Out No longe r eligible based on patient's age to complete this topic HIB VACCINE Aged Out No longer eligi ble based on patient's age to complete this topic HPV VACCINE Aged Out No longer eligi ble based on patient's age to complete this topic MENINGOCOCCAL (Group B) VACC INE SHARED DECISION-MAKING Aged Out No longer eligibl e based on patient's age to complete this topic MENINGOCOCCAL GROUPS A/C/Y/W VACCINE Aged Out No longer eligible b ased on patient's age to complete this topic Insurance MEDICARE Care Teams Structural Steel Ironworker Relationship Specialty Start Date End Date Kenny Fields MD [address] [place] [address] [address] [place] [address] PCP - General 07/03/22
[2024-11-13 11:08] LABS: Hematocrit 47.7 % (37.0-47.0); Hemoglobin 15.6 g/dL (12.0-15.0); Immature Granulocyte Percent A 0.2 % (0-0.5); Lymphocytes Absolute Auto 1.64 K/mm3 (0.9-3.2); Mean Corpuscular HGB Conc 32.7 g/dl (32-36); Mean Corpuscular Hemoglobin 31.3 pg (26-34); Mean Corpuscular Volume 95.6 fl (80-100); Nucleated Red Blood Cells Absolute Auto 0.000 K/mm3 (0.0-0.012); Nucleated Red Blood Cells Perc 0.0 % (0.0-0.2); Platelet Count Result 273 k/mm3 (150-375); Red Blood Count 4.99 M/mm3 (4.2-5.4); White Blood Count 9.1 K/mm3 (4.5-10.0)
[2024-11-13 13:55] LABS: Alanine Aminotransferase 22 U/L (6-35); Albumin Level 4.4 g/dL (3.5-5.1); Alkaline Phosphatase 78 U/L (38-126); Anion Gap 11 mmol/L (4-12); Aspartate Amino Transferase 29 U/L (14-36); Bilirubin,Total 0.9 mg/dL (0.2-1.3); Blood Urea Nitrogen 13 mg/dL (7-17); Calcium 9.8 mg/dL (8.4-10.2); Carbon Dioxide 26 mmol/L (22-30); Chloride 105 mmol/L (98-107); Estimated Glomerular Filt Rate 57; Glucose 148 mg/dL (65-110); Potassium 4.1 mmol/L (3.4-5.0); Sodium 142 mmol/L (137-145); Total Protein 8.0 g/dL (6.3-8.2)
== END 2024-11-13 10:54 | disposition home or self-care (01) ==
LOC: ANHLAB 10:54
PROVIDERS: PCP Nurse Practitioner Family; Visit Provider Internal Medicine Hematology & Oncology
DX: C50.212 Malignant neoplasm of upper-inner quadrant of left female breast (principal)
CPT/HCPCS: 36415; 80053; 85025; 86300